=== PATIENT | female | born 1985 | race Caucasian/White ===

== ENCOUNTER 2019-02-17 08:23 | Emergency (ER) | payer MEDICAID ==
--- NOTE | 2019-02-17 08:41 | UC ---
Cardiac HPI - HPI Summary HPI Summary: 33 yo with several months of recurrent episodes of left chest pain associated with shortness of breath. Describes a sharp stabbing pain in the left chest area , uncertain of duration, and apparently occurring several times per week, without associated syncopy, dizziness, diaphoresis. No cough or fever associated. No hx of asthma, no wheezing. Has been smoking 1/2-1 ppd for about 10 years. FH not well known. No hx of hypertension. Recently moved to [place], bipolar disorder has been treated previously in [place] , but has had intake at [facility]. - History of Current Complaint Stated Complaint: CHEST PAIN Time Seen by Provider: 02/17/19 08:24 Hx Obtained From: Patient Onset/Duration: Sudden Onset Timing: Intermittent Episodes Lasting: - minutes Initial Severity: Moderate Current Severity: None - pain currently resolved. Pain Intensity: 5 Chest Pain Location: Left Anterior - under left breast Character: Sharp/Stabbing Aggravating Factor(s): Nothing Alleviating Factor(s): Rest Associated Signs & Symptoms: Positive: Chest Pain, Anxiety - aware that this could be anxiety, but cannot identify triggering factors - Risk Factors Pulmonary Embolism Risk Factors: Smoking Cardiac Risk Factors: Smoking Atrial Fibrillation: Negative TAD Risk Factors: Negative PMH/Surg Hx/FS Hx/Imm Hx Psychological History: Bipolar Disorder Other History Of: Hepatitis C - treated 2018, apparently with success - Surgical History Surgical History: None - Family History Known Family History: Positive: Unknown - raised by grandparents, does not know FH - Social History Occupation: Disabled Alcohol Use: Rare Substance Use Type: Marijuana Substance Use Comment - Amount & Last Used: occasionally Smoking Status (MU): Heavy Every Day Tobacco Smoker Review of Systems All Other Systems Reviewed And Are Negative: Yes Constitutional: Positive: Negative Skin: Positive: Negative Eyes: Positive: Negative ENT: Positive: Negative Respiratory: Positive: Shortness Of Breath Cardiovascular: Positive: Chest Pain Gastrointestinal: Positive: Negative Genitourinary: Positive: Negative Motor: Positive: Negative Neurovascular: Positive: Negative Musculoskeletal: Positive: Negative Neurological: Positive: Negative Psychological: Positive: Anxious Is Patient Immunocompromised?: No Physical Exam Triage Information Reviewed: Yes Appearance: Well-Appearing - looks stated age., No Pain Distress Vital Signs: Initial Vital Signs Temp 98.2 F 02/17/19 08:29 Pulse 88 02/17/19 08:29 Resp 18 02/17/19 08:29 BP 106/69 02/17/19 08:29 Pulse Ox 100 02/17/19 08:29 Eyes: Positive: Conjunctiva Clear ENT: Positive: Normal ENT inspection, Pharynx normal, TMs normal Neck: Positive: Supple, Nontender, No Lymphadenopathy Respiratory: Positive: Lungs clear, Normal breath sounds, No respiratory distress Cardiovascular: Positive: RRR, No Murmur, Pulses Normal Abdomen Description: Positive: Nontender, No Organomegaly, Soft Musculoskeletal Exam: Normal Neurological Exam: Normal Neurological: Positive: Alert, Muscle Tone Normal Psychological: Positive: Normal Response To Family Skin Exam: Normal Diagnostics - EKG Cardiac Rate: NL Cardiac Rhythm: Sinus: Normal Ectopy: None ST Segment: Normal - Assessment/Plan Course Of Treatment: pain now resolved, reassured that history is not suggestive of cardiac disease. She has decreased smoking but not ready to stop. She has follow up with Mental Health but needs to establish primary care locally, and we will refer. - Differential Diagnoses - Chest Pain Differential Diagnosis/HQI/PQRI: ACS, Lower Respiratory Infection - Clinical Impression Provider Diagnosis: Anxiety Discharge ED - Sign-Out/Discharge Documenting (check all that apply): Patient Departure All imaging exams completed and their final reports reviewed: No Studies - Discharge Plan Condition: Stable Disposition: HOME Patient Education Materials: Anxiety (ED) Referrals: No Primary Care Phys,NOPCP [Primary Care Provider] - [facility] [Outside] Additional Instructions: Your EKG and clinical exam today are normal. Please ensure that you call the Physician referral service so that you can establish care with a local primary care provider for follow up assessment. - Billing Disposition and Condition Condition: STABLE Disposition: Home
== END 2019-02-17 09:10 | disposition home or self-care (01) ==
LOC: UCEAST 08:23
DX: F41.9 Anxiety disorder, unspecified (principal); F31.9 Bipolar disorder, unspecified; R06.02 Shortness of breath; R07.9 Chest pain, unspecified; F17.210 Nicotine dependence, cigarettes, uncomplicated
CPT/HCPCS: 99201; G0463

== ENCOUNTER 2019-04-15 20:17 | Emergency (ER) | payer MEDICAID ==
--- OUTSIDE RECORDS SUMMARY | 2019-04-15 20:24 | XMS REPORT | Continuity of Care Document ---
:1985 External Reference #:[id number] Author Name Faustino Brown M.D. 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 [phone] Medicine Problems Description No Information Available Social History Type Date Description Comments Sex Unknown ETOH Use Denies alcohol use Recreational Drug Use Former Drug User clean for 4 years Tobacco Use Start: Unknown Light tobacco smoker (10 or fewer cigarettes/day) Smoking Status Reviewed: 04/14/19 Light tobacco smoker (10 or fewer cigarettes/day) Exercise Type/Frequency Does not exercise played basketball and softball at school Allergies, Adverse Reactions, Alerts Description No Known Drug Allergies Medications Active Medications SIG Qnty Indications Ordering Date Provider Josee AGRAWAL 3 drops to R 5ml H60.311 Faustino Aggarwal 04/14/2019 0.2-1% Suspension ear twice a day Zeke Brown 12 Hour Nasal Relief 2 appl to each 15ml R04.0 Elaine Burden, 03/12/2019 [place] nostril twice a MD 0.05% Solution day Ibuprofen take 1 tablet 60tabs S29.012A Dorethaofijuan Bettencourt, 03/05/2019 600mg Tablets by mouth three TEXTILE BAG SEWER times a day as needed for pain Cyclobenzaprine HCL take 1-2 tablet 30tabs S29.012A Coretta Bettencourt, 2018 5mg by mouth two TEXTILE BAG SEWER Tablets times a day as needed for back pain M54.5 Vitamin D take one capsule by 8caps E55.9 Coretta Bettencourt, 03/03/2019 (Ergocalciferol) mouth every week for TEXTILE BAG SEWER 1.25mg (01922 8 weeks then Ut) Capsules continue on 1000 iu per day otc supplement, GNP Vitamin B-12 TR 1 tab po qday 90tabs Zsofia Sg, 03/03/2019 1000mcg TEXTILE BAG SEWER Tablets ER Hydroxyzine HCL take 1 tab by mouth 60tabs F41.9 Zsofia Sg, 02/26/2019 10mg Tablets three times a day as TEXTILE BAG SEWER needed for anxiety Latuda 1 by mouth every day 30tabs F31.9 Zsofia Sg, 40mg Tablets TEXTILE BAG SEWER History Medications Amoxicillin/Clavulanate take 1 tab 10tabs H92.01 Radha Bowen, 03/20/2019 - Potassium by mouth 03/25/2019 875-125mg Tablets every 12 hours for 5 days Metaxalone 1 tab po bid 30tabs M54.5 Zsofia 03/05/2019 - 800mg Tablets Sg, TEXTILE BAG SEWER 03/05/2019 S29.012A Immunizations Description No Information Available Vital Signs Date Vital Result Comment 04/14/2019 10:03am Height 62 inches 5'2" Weight 159.00 lb Heart Rate 93 /min BP Systolic Sitting 107 mmHg BP Diastolic Sitting 72 mmHg Body Temperature 97.0 F BMI (Body Mass Index) 29.1 kg/m2 03/20/2019 2:53pm Height 62 inches 5'2" Weight 148.38 lb Heart Rate 93 /min BP Systolic 106 mmHg BP Diastolic 72 mmHg Body Temperature 96.8 F O2 % BldC Oximetry 100 % BMI (Body Mass Index) 27.1 kg/m2 Results Test Acquired Date Facility Test Result H/L Range Note Comp Metabolic 02/26/2019 [facility] Sodium 137 mmol/L Normal 135-145 Panel [address] [place] [address] [phone] Potassium 5.0 mmol/L Normal 3.5-5.0 Chloride 101 mmol/L Normal 101-111 Co2 Carbon Dioxide 30 mmol/L Normal 22-32 Anion Gap 6 mmol/L Normal 2-11 Glucose 88 mg/dL Normal 70-100 Blood Urea Nitrogen 11 mg/dL Normal 6-24 Creatinine 0.69 mg/dL Normal 0.51-0.95 BUN/Creatinine Ratio 15.9 Normal 8-20 Calcium 9.4 mg/dL Normal 8.6-10.3 Total Protein 7.1 g/dL Normal 6.4-8.9 Albumin 4.4 g/dL Normal 3.2-5.2 Globulin 2.7 g/dL Normal 2-4 Albumin/Globulin Ratio 1.6 Normal 1-3 Total Bilirubin 0.30 mg/dL Normal 0.2-1.0 Alkaline Phosphatase 76 U/L Normal 34-104 Alt 12 U/L Normal 7-52 Ast 13 U/L Normal 13-39 Egfr Non- 96.8 >60 Egfr 117.2 >60 1 Laboratory 02/26/2019 [facility] TSH (Thyroid 1.68 Normal 0.34 -5.60 test finding [address] Stim Horm) mcIU/[place] [address] [phone] Vitamin B12 263 pg/mL Normal 180-914 2 Vitamin D Total 25(Oh) 11.1 ng/mL Low 20-50 3 CBC Auto 02/26/2019 [facility] White Blood 9.0 10^3/uL Normal 3.5-10.[address] [place] [address] [phone] Red Blood Count 4.29 10^6/uL Normal 3.70-4.87 Hemoglobin 13.4 g/dL Normal 12.0-16.0 Hematocrit 39 % Normal 35-47 Mean Corpuscular Volume 91 fL Normal 80-97 Mean Corpuscular Hemoglobin 31 pg Normal 27-31 Mean Corpuscular HGB Conc 34 g/dL Normal 31-36 Red Cell Distribution Width 14 % Normal 10-15 Platelet Count 381 10^3/uL Normal 150-450 Mean Platelet Volume 7.4 fL Normal 7.4-10.4 Abs Neutrophils 5.6 10^3/uL Normal 1.5-7.7 Abs Lymphocytes 2.4 10^3/uL Normal 1.0-4.8 Abs Monocytes 0.6 10^3/uL Normal 0-0.8 Abs Eosinophils 0.3 10^3/uL Normal 0-0.6 Abs Basophils 0.0 10^3/uL Normal 0-0.2 Abs Nucleated RBC 0.0 10^3/uL Granulocyte % 62.3 % Lymphocyte % 26.9 % Monocyte % 7.1 % Eosinophil % 3.2 % Basophil % 0.5 % Nucleated Red Blood Cells % 0.0 Hepatitis C Antibody 02/26/2019 [facility] HCV Index 32.30 s/c [address] [place] [address] [phone] Hepatitis C Antibody Reactive Abnormal Negative 4 Laboratory 02/26/2019 [facility] Hepatitis C Undetected Undetected 5 test finding [address] Rna Quant IU/[place] [address] [phone] 1 Because ethnic data is not always readily available, this report includes an eGFR for both -Americans and non- Americans. The National Kidney Disease Education Program (NKDEP) does not endorse the use of the MDRD equation for patients that are not between the ages of 18 and 70, are , have extremes of body size, muscle mass, or nutritional status, or are non- or non-. According to the National Kidney Foundation, irrespective of diagnosis, the stage of the disease is based on the level of kidney function: Stage Description GFR(mL/min/1.73 m(2)) 1 Kidney damage with normal or decreased GFR 90 2 Kidney damage with mild decrease in GFR 60-89 3 Moderate decrease in GFR 30-59 4 Severe decrease in GFR 15-29 5 Kidney failure <15 (or dialysis) 2 Normal Range 180 to 914 Indeterminate Range 145 to 180 Deficient Range <145 3 Total 25-Hydroxyvitamin D2 and D3 (25-OH-VitD) <10 ng/mL (severe deficiency) 10-19 ng/mL (mild to moderate deficiency) 20-50 ng/mL (optimum levels) 51-80 ng/mL (increased risk of hypercalciuria) >80 ng/mL (toxicity possible) 4 Specimen sent to Reference Laboratory for confirmation testing. 5 Result in log IU/mL is Undetected. ADDITIONAL INFORMATION The quantification range of this assay is 15 to 100,000,000 IU/mL (1.18 log to 8.00 log IU/mL). Testing was performed using the nayeli HCV test ([employer] with the nayeli [employer] System. Test Performed by: [facility] - [address] [address] Machine Sewer: Jose Vizcarra M.D. Ph.D.; [facility]# [id number] Procedures Description No Information Available Medical Devices Description No Information Available Encounters Type Date Location Provider Dx Diagnosis Office Visit 03/20/2019 [facility] Internal Elaine Burden, H92.01 Otalgia, [facility] Visit 03/12/2019 11:20a [facility] Internal Zsofia Sg, TEXTILE BAG SEWER R04.0 Epistaxis Medicine - [facility] M54.5 Low back pain E55.9 Vitamin D deficiency, unspecified Office Visit 03/05/2019 1:20p [facility] Internal Zsofia Sg, S29.012A Strain of Medicine - [facility] TEXTILE BAG SEWER muscle and tendon of back wall of thorax, init M54.5 Low back pain M54.2 Cervicalgia Office Visit 02/26/2019 9:20a [facility] Internal Zsofia Sg, F41.9 Anxiety disorder, Medicine - [facility] TEXTILE BAG SEWER unspecified M54.5 Low back pain M54.2 Cervicalgia F31.9 Bipolar disorder, unspecified F17.210 Nicotine dependence, cigarettes, uncomplicated B34.9 Viral infection, unspecified Assessments Date Code Description Provider 04/14/2019 H60.311 Diffuse otitis externa, right ear Faustino Brown M.D. 03/20/2019 H92.01 Otalgia, right ear Elaine Burden MD 03/20/2019 R04.0 Epistaxis Elaine Burden MD 03/12/2019 R04.0 Epistaxis Zsofia Sg, TEXTILE BAG SEWER 03/12/2019 M54.5 Low back pain Zsofia Sg, TEXTILE BAG SEWER 03/12/2019 E55.9 Vitamin D deficiency, unspecified Zsofia Sg, TEXTILE BAG SEWER 03/05/2019 S29.012A Strain of muscle and tendon of back wall Zsofia Sg, TEXTILE BAG SEWER of thorax, initial encounter 03/05/2019 M54.5 Low back pain Zsofia Sg, TEXTILE BAG SEWER 03/05/2019 M54.2 Cervicalgia Zsofia Sg, TEXTILE BAG SEWER 02/26/2019 F41.9 Anxiety disorder, unspecified Zsofia Sg, TEXTILE BAG SEWER 02/26/2019 M54.5 Low back pain Zsofia Sg, TEXTILE BAG SEWER 02/26/2019 M54.2 Cervicalgia Coretta Bettencourt, TEXTILE BAG SEWER 02/26/2019 F31.9 Bipolar disorder, unspecified Coretta Bettencourt, TEXTILE BAG SEWER 02/26/2019 F17.210 Nicotine dependence, cigarettes, Coretta Bettencourt, JESSICA uncomplicated 02/26/2019 B34.9 Viral infection, unspecified JESSICA Aggarwal Plan of Treatment Future Appointment(s):04/30/2019 11:20 am - JESSICA Aggarwal at [facility] Internal Medicine - [facility]04/16/2019 10:00 am - JESSICA Aggarwal at [facility] Internal Medicine - [facility] Functional Status Description No Information Available Mental Status Description No Information Available Referrals Refer to Reason for Referral Status Appt Date Naren Lawrence MD Sent 04/09/[address] [place] [id number] [phone] Semaj Stokes MD Received Partial [address] [place] [id number] [phone]
[2019-04-15 20:32] VITALS: BP 104/74
--- NOTE | 2019-04-15 20:37 | UC ---
Abdominal Pain Female HPI - HPI Summary HPI Summary: Patient's 33-year-old female presents to urgent care for evaluation of pain in the upper stomach left upper quadrant. Patient states it's been there for approximately 4 hours. Patient states she has been belching. Mild nausea. No vomiting. No diarrhea. No fevers or chills. No back pain different than her chronic back pain. Patient has not taken anything to try to treat her pain 11 1 Motrin yesterday. Patient without a history of similar. Patient's been able to eat and drink. Patient's states she is . No dysuria, vaginal discharge or itching or odor. Patient's medications as noted in EMR by triage was reviewed this visit. - History of Current Complaint Chief Complaint: UCAbdominalPain Stated Complaint: STOMACH PAIN Time Seen by Provider: 04/15/19 20:36 Hx Obtained From: Patient Hx Last Menstrual Period: 04/02/19 ?: No Pain Intensity: 7 Allergies/Adverse Reactions: Allergies Allergy/AdvReac Type Severity Reaction Status Date / Time No Known Allergies Allergy Verified 04/15/19 20:32 PMH/Surg Hx/FS Hx/Imm Hx Previously Healthy: Yes Other History Of: Hepatitis C - treated 2018, apparently with success - Surgical History Surgical History: Yes Surgery Procedure, Year, and Place: bunyon surgery, trach - Family History Known Family History: Positive: Unknown - raised by grandparents, does not know FH, Non-Contributory - Social History Occupation: Disabled - Yet every time he everything Lives: With Family Alcohol Use: Occasionally Substance Use Type: Marijuana Substance Use Comment - Amount & Last Used: occasionally Smoking Status (MU): Current Every Day Smoker Type: eCigarettes Amount Used/How Often: vapes Review of Systems All Other Systems Reviewed And Are Negative: Yes Constitutional: Positive: Negative Skin: Positive: Negative Eyes: Positive: Negative ENT: Positive: Negative Respiratory: Positive: Negative Cardiovascular: Positive: Negative Gastrointestinal: Positive: Abdominal Pain, Nausea Genitourinary: Positive: Negative Physical Exam - Summary Physical Exam Summary: Vital Signs Reviewed: Yes A+Ox3, no distress Eyes: Conjunctiva Clear, ANT. EOM intact and full ENT: Hearing grossly normal TM x 2 clear, + turbiantes inflammed, + PND mmoist , uvula midline, no exudate, + erythema Neck: Positive: Supple Respiratory: Positive: No respiratory distress, No accessory muscle use + CTA throughout no w/r Cardiovascular: RRR nl s1, s2 no m/r CBT <2 sec abd soft + BS nt soft + BS mild epigastric discomfort with palpation - no guarding, no cva Musculoskeletal Exam: FRIEDMAN x 4 without difficulty Strength Intact, ROM Intact Neurological: Positive: Alert, + sensation throughout Psychological: Positive: Normal Response To examiner Skin: Positive: no rash, no ecchymosis Triage Information Reviewed: Yes Vital Signs: Initial Vital Signs Temp 99 F 04/15/19 20:25 Pulse 74 04/15/19 20:25 Resp 16 04/15/19 20:25 BP 104/74 04/15/19 20:25 Pulse Ox 98 04/15/19 20:25 Re-Evaluation - Re-Evaluation First Eval Change: Improved - Patient reports feeling much better after the cocktail. His pain is still present but not like it was. Recommend patient take over-the- counter Maalox, Tums or Pepto-Bismol. Recommend Pepcid twice a day. Discussed with patient will be back the next 1-2 days. Patient but with PCP in am. Strict return precautions discussed. Patient comfortable in agreement with plan. Abd Pain Female Course/Dx - Course Course Of Treatment: Patient presents to urgent care for evaluation of epigastric abdominal pain for last 24 hours. 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 Patient's been able to eat and drink. No fever. On exam vital signs are stable. Patient is nontoxic appearing. Pain is epigastric. We'll check urine and strep as patient's crit. We'll give GI cocktail reassess. Patient comfortable in agreement with plan. Of note, patient does have an appointment with her primary care tomorrow morning at 9:30. Patient was concerned that she does have a history of hepatitis C was told that her symptoms could come back even though she was "cured". Discussed with patient will also check some baseline labs including a mono given the fact that her throat has erythema and she has mild left upper quadrant pain. Patient comfortable in agreement with plan. - Differential Dx/Diagnosis Provider Diagnosis: Epigastric pain Discharge ED - Sign-Out/Discharge Documenting (check all that apply): Patient Departure All imaging exams completed and their final reports reviewed: No Studies - Discharge Plan Condition: Stable Disposition: HOME Patient Education Materials: Epigastric Pain (ED) Referrals: Coretta Bettencourt NP [Primary Care Provider] - Additional Instructions: - Stay well hydrated. Drink plenty of non-alcoholic, non-caffinated beverages - eat small, frequent meals - bland food - avoid spicy food, acidic food, tomato based food - okay to take Tums or Maalox for pain - the blook work drawn today will come back in 1-2 days - you will receive a call from a care steamer tender with any concerning result - Keep your appointment with your doctor tomorrow. If your symptoms change or worsen, go to the emergency department - Billing Disposition and Condition Condition: STABLE Disposition: Home
[2019-04-15] MEDS ORDERED: Acetaminophen TAB* 325 MG PO ONE (20:52)
[2019-04-15] MEDS ORDERED: Al Hydrox/Mg Hydrox/Simet LIQ* 30 ML UDC PO ONE (20:52)
[2019-04-16 11:07] LABS: ABS Basophils 0.1 10^3/ul (0-0.2); ABS Eosinophils 0.2 10^3/ul (0-0.6); ABS Lymphocytes 3.7 10^3/ul (1.0-4.8); ABS Monocytes 0.6 10^3/ul (0-0.8); ABS Neutrophils 4.7 10^3/ul (1.5-7.7); Eosinophil % 1.7 %; Hematocrit 37 % (35-47); Hemoglobin 13.2 g/dL (12.0-16.0); Mean Corpuscular HGB Conc 35 g/dL (31-36); Mean Corpuscular Hemoglobin 31 pg (27-31); Mean Corpuscular Volume 88 fL (80-97); Mean Platelet Volume 7.7 fL (7.4-10.4); Platelet Count 347 10^3/uL (150-450); Red Blood Count 4.22 10^6 /uL (3.70-4.87); Red Cell Distribution Width 13 % (10-15); White Blood Count 9.2 10^3/uL (3.5-10.8)
[2019-04-16 11:13] LABS: Albumin 4.6 g/dL (3.2-5.2); Calcium 9.6 mg/dL (8.6-10.3); Total Bilirubin 0.3 mg/dL (0.2-1.0)
[2019-04-16 11:19] LABS: Albumin/Globulin Ratio 1.7 (1-3); EGFR African American 84.1 (>60); EGFR Non-African American 69.5 (>60); Globulin 2.7 g/dL (2-4); Total Protein 7.3 g/dL (6.4-8.9)
== END 2019-04-15 21:40 | disposition home or self-care (01) ==
LOC: UCEAST 20:17
DX: R10.13 Epigastric pain (principal); R10.12 Left upper quadrant pain; F17.290 Nicotine dependence, other tobacco product, uncomplicated
CPT/HCPCS: 36415; 80053; 81003; 85025; 86308; 86664; 86665; 87086; 87651; 99212; A9270-GY; G0463

== ENCOUNTER 2019-04-17 20:10 | Emergency (ER) | payer MEDICAID ==
--- OUTSIDE RECORDS SUMMARY | 2019-04-17 20:28 | XMS REPORT | Continuity of Care Document ---
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 [phone] Medicine Problems Description No Information Available Social History Type Date Description Comments Sex Unknown ETOH Use Denies alcohol use Recreational Drug Use Former Drug User clean for 4 years Tobacco Use Start: Unknown Light tobacco smoker (10 or fewer cigarettes/day) Smoking Status Reviewed: 04/16/19 Light tobacco smoker (10 or fewer cigarettes/day) Exercise Type/Frequency Does not exercise played basketball and softball at school Allergies, Adverse Reactions, Alerts Description No Known Drug Allergies Medications Active Medications SIG Qnty Indications Ordering Date Provider Tizanidine HCL i tab po bid a 60tabs M54.5 Coretta Bettencourt, 04/16/2019 4mg Tablets needed ALUMINUM SHINGLE ROOFER Ciprodex 4 drops into 7.500ml H60.311 Faustino E. 04/14/2019 0.3-0.1% affected ear Zeke Brown Suspension twice daily for 7 days 12 Hour Nasal Relief 2 appl to each 15ml R04.0 Elaine 03/12/2019 [place] nostril twice a MD Bertram 0.05% Solution day Ibuprofen take 1 tablet by 60tabs S29.012A Coretta Bettencourt, 03/05/2019 600mg Tablets mouth three ALUMINUM SHINGLE ROOFER times a day as needed for pain Cyclobenzaprine HCL take 1-2 tablet 30tabs S29.012A Coretta Bettencourt, 2018 5mg by mouth two ALUMINUM SHINGLE ROOFER Tablets times a day as needed for back pain M54.5 Vitamin D take one capsule by 8caps E55.9 Coretta Bettencourt, 03/03/2019 (Ergocalciferol) mouth every week for ALUMINUM SHINGLE ROOFER 1.25mg (96478 8 weeks then Ut) Capsules continue on 1000 iu per day otc supplement, GNP Vitamin B-12 TR 1 tab po qday 90tabs Dorethaofijuan Bettencourt, 03/03/2019 1000mcg ALUMINUM SHINGLE ROOFER Tablets ER Hydroxyzine HCL take 1 tab by mouth 60tabs F41.9 Dorethaofia Sg, 02/26/2019 10mg Tablets three times a day as ALUMINUM SHINGLE ROOFER needed for anxiety Latuda 1 by mouth every day 30tabs F31.9 Zsofia Sg, 40mg Tablets ALUMINUM SHINGLE ROOFER History Medications Cipro HC 3 drops to R 5ml H60.311 Faustino Aggarwal 04/14/2019 - 0.2-1% ear twice a day Zeke Brown 04/14/2019 Suspension Amoxicillin/Clavulan take 1 tab by 10tabs H92.01 Radha Bowen MD 2018 - ate Potassium mouth every 12 03/25/2019 hours for 5 875-125mg Tablets days Metaxalone 1 tab po bid 30tabs M54.5 Dorethaofia Sg, 03/05/2019 - 800mg ALUMINUM SHINGLE ROOFER 03/05/2019 Tablets S29.012A Immunizations Description No Information Available Vital Signs Date Vital Result Comment 04/16/2019 10:01am Height 62 inches 5'2" 04/14/2019 10:03am Height 62 inches 5'2" Weight 159.00 lb Heart Rate 93 /min BP Systolic Sitting 107 mmHg BP Diastolic Sitting 72 mmHg Body Temperature 97.0 F BMI (Body Mass Index) 29.1 kg/m2 Results Test Acquired Date Facility Test Result H/L Range Note Poc Urinalysis 04/15/2019 [facility] Poc Glucose, NEGATIVE Negative [address] [place] [address] [phone] Poc Bilirubin, Urine NEGATIVE Negative Poc Ketone, Urine NEGATIVE Negative Poc Specific [place], Urine 1.020 Normal 1.010-1.030 Poc Blood, Urine NEGATIVE Negative 1 Poc pH, Urine 7.5 Normal 5-9 Poc Protein, Urine NEGATIVE Negative Poc Urobilinogen, Urine 0.2 Negative Poc Nitrite, Urine NEGATIVE Negative Poc Leukocytes, Urine TRACE Negative Poc Color, Urine LIGHT YELLOW Poc Clarity, Urine SLIGHTLY CLOUDY Laboratory 04/15/2019 [facility] Rapid Strep Negative Negative [address] [place] [address] [phone] Comp Metabolic 02/26/2019 [facility] Sodium 137 mmol/L Normal 135-145 [place] [address] [phone] Potassium 5.0 mmol/L Normal 3.5-5.0 Chloride 101 [...] Egfr Non- 96.8 >60 Egfr 117.2 >60 3 Laboratory 02/26/2019 [facility] TSH (Thyroid 1.68 Normal 0.34 -5.[address] Stim Horm) mcIU/[place] [address] [phone] Vitamin B12 263 pg/mL Normal 180-914 4 Vitamin D Total 25(Oh) 11.1 ng/mL Low 20-50 5 CBC Auto 02/26/2019 [facility] White Blood 9.0 10^3/uL Normal 3.5-10.8 Diff [address] [place] [address] [phone] Red Blood Count 4.29 10^6/uL Normal 3.70-4.87 [...] Cells % 0.0 Hepatitis C Antibody 02/26/2019 [facility] HCV Index 32.30 s/c [address] [place] [address] [phone] Hepatitis C Antibody Reactive Abnormal Negative 6 Laboratory 02/26/2019 [facility] Hepatitis C Undetected Undetected 7 test finding [address] Rna Quant IU/[place] [address] [phone] 1 Research Professional: [id number] Research Professional: [id number] Suboptimal collection technique may reduce sensitivity of test. Refer to the [facility] Test Catalog for collection information: [email or web address] As with all diagnostic procedures, the laboratory results obtained should be used in conjunction with other clinical information available to the physician, including confirmation by another method, as applicable. 3 Because ethnic data is not always readily [...] 15-29 5 Kidney failure <15 (or dialysis) 4 Normal Range 180 to 914 Indeterminate Range 145 to 180 Deficient Range <145 5 Total 25-Hydroxyvitamin D2 and D3 (25-OH-VitD) <10 ng/mL (severe deficiency) 10-19 ng/mL (mild to moderate deficiency) 20-50 ng/mL (optimum levels) 51-80 ng/mL (increased risk of hypercalciuria) >80 ng/mL (toxicity possible) 6 Specimen sent to Reference [facility] for confirmation testing. 7 Result in log IU/mL is Undetected. ADDITIONAL INFORMATION The quantification range of this assay is 15 to 100,000,000 IU/mL (1.18 log to 8.00 log IU/mL). Testing was performed using the nayeli HCV test ([employer] with the nayeli WhatsOpen0 System. Test Performed by: [place] [address] Decorator Inspector: Jose Vizcarra M.D. Ph.D.; CLIA# [id number] Procedures Description No Information Available Medical Devices Description No Information Available Encounters Type Date Location Provider Dx Diagnosis Office Visit 03/20/2019 [facility] Elaine Burden, H92.01 Otalgia, right [facility] 3:[facility] R[facility]0 Epistaxis Office Visit 03/12/2019 11:20a [facility] JESSICA Aggarwal R04.0 Epistaxis [facility] M54.5 Low back pain E55.9 Vitamin D deficiency, unspecified Office Visit 03/05/2019 1:20p [facility] Coretta Bettencourt, S29.012A Strain [facility] muscle and tendon of back wall of thorax, init M54.5 Low back pain M54.2 Cervicalgia Office Visit 02/26/2019 9:20a [facility] Coretta Bettencourt, F41.9 Anxiety disorder, [facility] [facility] unspecified M54.5 Low back pain M54.2 Cervicalgia F31.9 Bipolar disorder, unspecified F17.210 Nicotine dependence, cigarettes, uncomplicated B34.9 Viral infection, unspecified Assessments Date Code Description Provider 04/16/2019 R10.12 Left upper quadrant pain Zsofia Sg, [employer] 04/16/2019 M54.5 Low back pain Zsofia Sg, [employer] 04/16/2019 E55.9 Vitamin D deficiency, unspecified Zsofia Sg, [employer] 04/16/2019 F31.9 Bipolar disorder, unspecified Zsofia Sg, [facility] 04/16/2019 E78.5 Hyperlipidemia, unspecified Zsofia Sg, [facility] 04/16/2019 E53.9 Vitamin B deficiency, unspecified Zsofia Sg, [facility] 04/14/2019 H60.311 Diffuse otitis externa, right ear Faustino Brown M.D. 03/20/2019 H92.01 Otalgia, right ear Elaine Burden MD 03/20/2019 R04.0 Epistaxis Elaine Burden MD 03/12/2019 R04.0 Epistaxis Zsofia Sg, [facility] 03/12/2019 M54.5 Low back pain Zsofia Sg, [facility] 03/12/2019 E55.9 Vitamin D deficiency, unspecified Zsofia Sg, [facility] 03/05/2019 S29.012A Strain of muscle and tendon of back wall Zsofia Sg, [employer] of thorax, initial encounter 03/05/2019 M54.5 Low back pain Zsofia Sg, [employer] 03/05/2019 M54.2 Cervicalgia Zsofia Sg, [employer] 02/26/2019 F41.9 Anxiety disorder, unspecified Zsofia Sg, [facility] 02/26/2019 M54.5 Low back pain Zsofia Sg, [employer] 02/26/2019 M54.2 Cervicalgia Zsofia Sg, [employer] 02/26/2019 F31.9 Bipolar disorder, unspecified Zsofia Sg, [employer] 02/26/2019 F17.210 Nicotine dependence, cigarettes, Zsofia Sg, ALUMINUM [employer]INGLE ROOFER uncomplicated 02/26/2019 B34.9 Viral infection, unspecified Zsofia Sg, ALUMINUM [employer]INGLE [employer]OOFER Plan of Treatment Future Appointment(s):05/21/2019 1:20 pm - JESSICA Aggarwal at [facility] - KAY AggarwalPR10.12 Left upper quadrant painNew Labs:Comp Metabolic Panel, Ordered: 04/16/19Comments:For now make sure that you stay well hydrated. Drink plenty of non-alcoholic, non-caffinated beverages - eat small, frequent meals - increase your fiber intake - avoid spicy food, acidic food, tomato based food - okay to take Tums or Maalox for painFollow up:4 weeks for PEM54.5 Low back painNew Medication:Tizanidine HCL 4 mg - i tab po bid a gkmnqsV67.9 Vitamin D deficiency, gafagoazoxcU88.9 Bipolar disorder, unspecifiedComments:Will check Latuda level uupuwI83.5 Hyperlipidemia , wgxqlwxeubsB10.9 Vitamin B deficiency, unspecified Functional Status Description No Information Available Mental Status Description No Information Available Referrals Refer to Dr Reason for Referral Status Appt Date Naren Lawrence MD Sent 04/09/2019 [address] [place] [address] [phone] Semaj Stokes MD Received Partial [address] [place] [address] [phone]
[2019-04-17] MEDS ORDERED: Ondansetron INJ* 2 MG/ML VIAL IV ONE (21:20)
[2019-04-17] MEDS ORDERED: Lidocaine 2% VISCOUS* 15 ML UDC PO ONE (21:20)
[2019-04-17] MEDS ORDERED: NS 0.9% 1000 ML** 1,000 ML IV ONE (21:20)
[2019-04-17] MEDS ORDERED: Al Hydrox/Mg Hydrox/Simet LIQ* 30 ML UDC PO ONE (21:20)
--- NOTE | 2019-04-17 21:21 | ED ---
Abdominal Pain/Female - HPI Summary HPI Summary: Patient complains of left side abdominal pain, nausea and vomiting after eating 5 days. Pain described as constant with spikes, no onset, sharp. Denies trauma, fever, cough, sore throat, diarrhea, change in urine, change in BM, vaginal symptoms. Medical history is none. Abdominal surgical history is none. Patient tried Maalox 2 hours ago with some relief. No prior history of GERD. - History of Current Complaint Chief Complaint: EDAbdPain Stated Complaint: L SIDE STOMACH PAIN AND VOMITING PER PT Time Seen by Provider: 04/17/19 21:10 Hx Obtained From: Patient Hx Last Menstrual Period: 04/02/19 Onset/Duration: Gradual Onset, Lasting Days Timing: Constant Severity Initially: Moderate Severity Currently: Moderate Pain Intensity: 5 Pain Scale Used: 0-10 Numeric Location: Discrete At: LUQ Radiates: No Character: Sharp Aggravating Factor(s): Food Alleviating Factor(s): Antacids Associated Signs and Symptoms: Positive: Decreased Appetite, Nausea, Vomiting Allergies/Adverse Reactions: Allergies Allergy/AdvReac Type Severity Reaction Status Date / Time No Known Allergies Allergy Verified 04/15/19 20:32 Home Medications: Home Medications Lurasidone(*) [Latuda] 40 mg PO DAILY WITH MEAL 04/17/19 [History Confirmed ] PMH/Surg Hx/FS Hx/Imm Hx Endocrine/Hematology History: Denies: Hx Anticoagulant Therapy Cardiovascular History: Denies: Hx Pacemaker/ICD History: Denies: Hx Dialysis Musculoskeletal History: Denies: Hx Scoliosis Sensory History: Denies: Hx Eye Prosthesis Opthamlomology History: Denies: Hx Legally Blind EENT History: Denies: Hx Deafness Neurological History: Denies: Hx Dementia, Other Neuro Impairments/Disorders - Surgical History Surgery Procedure, Year, and Place: bunyon surgery, trach Infectious Disease History: No Infectious Disease History: Reports: Hx Hepatitis - hx hep c Denies: Traveled Outside the [place] in Last 30 Days - Family History Known Family History: Positive: Unknown - raised by grandparents, does not know FH, Non-Contributory - Social History Alcohol Use: Occasionally Substance Use Type: Reports: Marijuana Substance Use Comment - Amount & Last Used: occasionally Smoking Status (MU): Current Every Day Smoker Type: eCigarettes Amount Used/How Often: vapes Review of Systems Constitutional: Negative Eyes: Negative ENT: Negative Cardiovascular: Negative Respiratory: Negative Positive: Abdominal Pain, Vomiting, Nausea Genitourinary: Negative Musculoskeletal: Negative Skin: Negative Neurological: Negative Psychological: Normal All Other Systems Reviewed And Are Negative: Yes Physical Exam - Summary Physical Exam Summary: Tenderness in left upper quadrant. Abdominal exam otherwise unremarkable. Triage Information Reviewed: Yes Vital Signs On Initial Exam: Initial Vitals Temp Pulse Resp BP Pulse Ox 99 F 86 20 127/76 98 04/17/19 20:19 04/17/19 20:19 04/17/19 20:19 04/17/19 20:19 04/17/19 20:19 Vital Signs Reviewed: Yes Appearance: Positive: Well-Appearing Skin: Positive: Warm Head/Face: Positive: Normal Head/Face Inspection Eyes: Positive: Normal Neck: Positive: Supple Respiratory/Lung Sounds: Positive: Clear to Auscultation Cardiovascular: Positive: Normal Abdomen Description: Positive: Other: Musculoskeletal: Positive: Normal Neurological: Positive: Normal Psychiatric: Positive: Normal AVPU Assessment: Alert - Andres Coma Scale Best Eye Response: 4 - Spontaneous Best Motor Response: 6 - Obeys Commands Best Verbal Response: 5 - Oriented Coma Scale Total: 15 Procedures - Sedation Patient Received Moderate/Deep Sedation with Procedure: No Diagnostics - Vital Signs Vital Signs Temp Pulse Resp BP Pulse Ox 04/17/19 20:19 99 F 86 20 127/76 98 - Laboratory Result Diagrams: 04/17/19 21:34 04/17/19 21:34 Lab Statement: Any lab studies that have been ordered have been reviewed, and results considered in the medical decision making process. Abdominal Pain Fem Course/Dx - Course Course Of Treatment: Patient complains of left side abdominal pain, nausea and vomiting after eating 5 days. Pain described as constant with spikes, no onset , sharp. Denies trauma, fever, cough, sore throat, diarrhea, change in urine, change in BM, vaginal symptoms. Medical history is none. Abdominal surgical history is none. Patient tried Maalox 2 hours ago with some relief. No prior history of GERD. Vital signs within normal limits. Labs unremarkable. Patient 's symptoms completely resolved with GI cocktail. - Diagnoses Provider Diagnoses: Gastritis, Nausea & vomiting Discharge ED - Sign-Out/Discharge Documenting (check all that apply): Patient Departure - Discharge Plan Condition: Stable Disposition: HOME Prescriptions: Lidocaine 2% VISCOUS* [Xylocaine 2% Viscous*] 15 ml SWISH SPIT Q6H PRN #1 btl PRN Reason: Pain - Moderate Omeprazole 20 mg PO DAILY 30 Days #30 capsule. Ondansetron ODT TAB* [Zofran 4 MG Odt TAB*] 4 mg PO Q8H PRN 4 Days #14 tab.odt PRN Reason: Nausea Patient Education Materials: Gastritis (ED) Referrals: Reggie Encarnacion MD [Medical Doctor] - Coretta Bettencourt NP [Primary Care Provider] - Additional Instructions: Take omeprazole daily for at least 2 weeks. Gentle diet. If your symptoms persist follow-up with primary care and/or GI doctor Alysha for further evaluation. Return to the ED for any new or worsening symptoms. - Billing Disposition and Condition Condition: STABLE Disposition: Home
[2019-04-17 21:39] LABS: ABS Basophils 0.1 10^3/ul (0-0.2); ABS Eosinophils 0.2 10^3/ul (0-0.6); ABS Lymphocytes 3.5 10^3/ul (1.0-4.8); ABS Monocytes 0.6 10^3/ul (0-0.8); ABS Neutrophils 4.9 10^3/ul (1.5-7.7); Eosinophil % 1.9 %; Hematocrit 36 % (35-47); Hemoglobin 12.6 g/dL (12.0-16.0); Lymphocyte % 37.4 %; Mean Corpuscular HGB Conc 35 g/dL (31-36); Mean Corpuscular Hemoglobin 31 pg (27-31); Mean Corpuscular Volume 89 fL (80-97); Nucleated Red Blood Cells % 0.1; Platelet Count 339 10^3/uL (150-450); Red Blood Count 4.09 10^6 /uL (3.70-4.87); Red Cell Distribution Width 13 % (10-15); White Blood Count 9.4 10^3/uL (3.5-10.8)
[2019-04-17 21:39] LABS: Urine Appearance Cloudy; Urine Bilirubin Negative (Negative); Urine Blood Negative (Negative); Urine Color Yellow; Urine Glucose Negative (Negative); Urine Ketones Negative (Negative); Urine Nitrite Negative (Negative); Urine Protein Negative (Negative); Urine Specific Gravity 1.019 (1.010-1.030); Urine Urobilinogen Negative (Negative)
[2019-04-17 21:43] LABS: Urine Bacteria Absent (Absent); Urine Red Blood Cell Trace(0-2/hpf) (Absent); Urine Squamous Epithelial Cell Present (Absent); Urine White Blood Cell Trace(0-5/hpf) (Absent)
[2019-04-17 21:56] LABS: ALT 10 U/L (7-52); AST 11 U/L (13-39); Albumin 4.2 g/dL (3.2-5.2); Albumin/Globulin Ratio 1.5 (1-3); Alkaline Phosphatase 67 U/L (34-104); Anion Gap 6 mmol/L (2-11); BUN/Creatinine Ratio 15.7 (8-20); Blood Urea Nitrogen 13 mg/dL (6-24); CO2 Carbon Dioxide 31 mmol/L (22-32); Calcium 9.2 mg/dL (8.6-10.3); Chloride 101 mmol/L (101-111); EGFR African American 94.7 (>60); EGFR Non-African American 78.2 (>60); Globulin 2.8 g/dL (2-4); Glucose 71 mg/dL (70-100); Potassium 3.9 mmol/L (3.5-5.0); Sodium 138 mmol/L (135-145)
[2019-04-17 22:04] LABS: HCG Pregnancy < 0.60 mIU/mL
[2019-04-17] MEDS ORDERED: Pantoprazole TAB * 40 MG TAB PO ONE (22:08)
[2019-04-17 22:24] VITALS: BP 108/68
== END 2019-04-17 22:23 | disposition home or self-care (01) ==
LOC: ED 20:10
DX: K29.70 Gastritis, unspecified, without bleeding (principal); R11.2 Nausea with vomiting, unspecified; F17.290 Nicotine dependence, other tobacco product, uncomplicated
CPT/HCPCS: 36415; 80053; 81003; 81015; 83690; 84702; 85025; 86140; 87086; 96361; 96374; 99283; A9270-GY; J2405

== ENCOUNTER 2019-05-20 17:30 | Emergency (ER) | payer MEDICAID, OTHER ==
--- OUTSIDE RECORDS SUMMARY | 2019-05-20 17:41 | XMS REPORT ---
:1985 Author Organization [facility] Care Team Providers Name Role Phone DANIEL MOISES Primary Care Physician Unavailable Allergies, Adverse Reactions, Alerts Allergy Code CodeSystem Reaction Severity Criticality Status Start Substance Date Moderate Medications Medication Medication Medication Start Stop Route Dose Status Fill Code CodeSystem Date Date Instructions RxNorm Problems Problem Name Code CodeSystem Alternate Alternate Start End Status Narrative Code CodeSystem Date Date Bipolar [id number] SNOMED-CT 2018- Active affective 1-13 disorder, unspecified Relevant diagnostic tests/laboratory data Narrative No Information Procedures Procedure Code CodeSystem Target Date of Status Service Device Device Device Name Site Procedure Delivery Code Name UID Location SNOMED-CT () 2019-02-12 complete Mental d Health- [address], [id number] Psychiatric [id number] SNOMED-CT () 2019-03-05 complete Mental diagnostic 85 d Health- evaluation [facility] with [address], [id number] Psychotherap [id number] SNOMED-CT () 2019-03-17 complete Mental y, 45 04 d Health- minutes with [address], [id number] Psychotherap [id number] SNOMED-CT () 2019-02-20 complete Mental y, 45 04 d Health- minutes with [address], [id number] Psychotherap [id number] SNOMED-CT () 2019-04-03 complete Mental y, 45 04 d Health- minutes with [address], [id number] Office or [id number] SNOMED-CT () 2019-04-16 complete Mental other 6 d Health- outpatient [facility] visit for [address], [facility], established [id number] patient, [id number] which requires at least 2 of these 3 pederson components: A problem focused history; A problem focused examination; Straightforw anayeli medical decision making. Counselin Office or [id number] SNOMED-CT () 2019-03-19 complete Mental other 6 d Health- outpatient Janet visit for [facility], [facility] [address] [facility], of an [facility] [id number] patient, [id number] which requires at least 2 of these 3 pederson components: A problem focused history; A problem focused examination; Straightforw anayeli medical decision making. Counselin Encounters/Encounter Diagnoses Encounter Name Encounter Diagnosis Diagnosis Diagnosis Date of Service Code Code Name CodeSystem Diagnosis Delivery Location [facility] [id number] Bipolar SNOMED-CT 2019-04-16 Behavioral Established affective Health patient 10 disorder, Clinic [address] Minutes unspecified [place], [place], [id number] Vital Signs No Information Social History Element Description Description Start End Code CodeSystem AdditionalInfo Date Date SexAssignedAtBirth Female F AdministrativeGender 04-19 Hospital Discharge Instructions Reason For Referral Medical Equipment FDA Assessments
--- OUTSIDE RECORDS SUMMARY | 2019-05-20 17:41 | XMS REPORT | Continuity of Care Document ---
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 Medicine Problems Description No Information Available Social History Type Date Description Comments Sex Unknown ETOH Use Denies alcohol use Smoking vapes Recreational Drug Use Former Drug User clean for 4 years Exercise Type/Frequency Does not exercise played basketball and softball at school Allergies, Adverse Reactions, Alerts Description No Known Drug Allergies Medications Active Medications SIG Qnty Indications Ordering Provider Date Lidocaine Viscous Michelle Humphrey 05/08/2019 HCL CYNTHIA Oswald 2% Solution Zofran 1 tab po q day as 14tabs R10.12 Dorethaofijuan Bettencourt, 04/30/2019 4mg Tablets needed for nausea LEAD JAVASCRIPT DEVELOPER Tizanidine HCL i tab po bid a 60tabs M54.5 Dorethaofijuan Bettencourt, 04/16/2019 4mg needed LEAD JAVASCRIPT DEVELOPER Tablets Ibuprofen take 1 tablet by 60tabs S29.012A Dorethaofijuan Bettencourt, 03/05/2019 600mg mouth three times LEAD JAVASCRIPT DEVELOPER Tablets a day as needed for pain Vitamin D take one capsule 8caps E55.9 Dorethaofijuan Bettencourt, 03/03/2019 (Ergocalciferol) by mouth every LEAD JAVASCRIPT DEVELOPER week for 8 weeks 1.25mg (26200 Ut) then continue on Capsules 1000 iu per day otc supplement, GNP Vitamin B-12 TR 1 tab po qday 90tabs Dorethaofijuan Bettencourt, 03/03/2019 LEAD JAVASCRIPT DEVELOPER 1000mcg Tablets ER Hydroxyzine HCL take 1 tab by 60tabs F41.9 Dorethaofijuan Bettencourt, 02/26/2019 10mg mouth three times LEAD JAVASCRIPT DEVELOPER Tablets a day as needed for anxiety Latuda 1 by mouth every 30tabs F31.9 Dorethaofia Sg, 40mg Tablets day LEAD JAVASCRIPT DEVELOPER Omeprazole 1/2 hour before 90caps Michelle Cerratoth 20mg breakfast by CYNTHIA Oswald Capsules DR mouth every day History Medications Cipro HC 3 drops to R ear 5ml H60.311 Faustino EJesus 04/14/2019 - 0.2-1% twice a day Zeke Brown 04/14/2019 Suspension Ciprodex 4 drops into 7.500ml H60.311 Faustino E. 04/14/2019 - 0.3-0.1% affected ear Zeke Brown 05/08/2019 Suspension twice daily for 7 days Amoxicillin/Clavula take 1 tab by 10tabs H92.01 Radha Bowen MD 2018 - gerry Potassium mouth every 12 03/25/2019 hours for 5 days 875-125mg Tablets 12 Hour Nasal 2 appl to each 15ml R04.0 Elaine Burden 03/12/2019 - Relief [place] nostril twice a MD 05/08/2019 0.05% day Solution Metaxalone 1 tab po bid 30tabs M54.5 Coretta Bettencourt, 03/05/2019 - 800mg LEAD JAVASCRIPT DEVELOPER 03/05/2019 Tablets S29.012A Cyclobenzaprine HCL take 1-2 30tabs S29.012A Coretta Bettencourt, 03/05/2019 - 5mg tablet by LEAD JAVASCRIPT DEVELOPER 04/16/2019 Tablets mouth two times a day as needed for back pain M54.5 Immunizations Description No Information Available Vital Signs Date Vital Result Comment 05/08/2019 3:12pm Height 62 inches 5'2" Weight 161.00 lb Heart Rate 90 /min BP Systolic 102 mmHg BP Diastolic 70 mmHg BMI (Body Mass Index) 29.4 kg/m2 04/30/2019 11:41am Height 62 inches 5'2" Weight 159.00 lb Heart Rate 86 /min BP Systolic 119 mmHg BP Diastolic 73 mmHg Body Temperature 97.9 F O2 % BldC Oximetry 98 % BMI (Body Mass Index) 29.1 kg/m2 Results Test Acquired Date Facility Test Result H/L Range Note Urinalysis Profile 04/17/2019 [facility] Urine Color Yellow [address] [place] [address] [phone] Urine Appearance Cloudy Urine Specific [place] 1.019 Normal 1.010-1.030 Urine pH 6.0 Normal 5-9 Urine Urobilinogen Negative Negative Urine Ketones Negative Negative Urine Protein Negative Negative Urine Leukocytes 1+ Abnormal Negative Urine Blood Negative Negative Urine Nitrite Negative Negative Urine Bilirubin Negative Negative Urine Glucose Negative Negative Urine White Blood Cell Trace(0-5/hpf) Absent Urine Red Blood Cell Trace(0-2/hpf) Absent Urine Bacteria Absent Absent Urine Squamous Epithelial Cell Present Abnormal Absent CBC Auto 04/17/2019 [facility] White Blood 9.4 10^3/uL Normal 3.5-10.[address] [place] [address] [phone] Red Blood Count 4.09 10^6/uL Normal 3.70-4.87 Hemoglobin 12.6 g/dL Normal 12.0-16.0 Hematocrit 36 % Normal 35-47 Mean Corpuscular Volume 89 fL Normal 80-97 Mean Corpuscular Hemoglobin 31 pg Normal 27-31 Mean Corpuscular HGB Conc 35 g/dL Normal 31-36 Red Cell Distribution Width 13 % Normal 10-15 Platelet Count 339 10^3/uL Normal 150-450 Mean Platelet Volume 7.0 fL Low 7.4-10.4 Abs Neutrophils 4.9 10^3/uL Normal 1.5-7.7 Abs Lymphocytes 3.5 10^3/uL Normal 1.0-4.8 Abs Monocytes 0.6 10^3/uL Normal 0-0.8 Abs Eosinophils 0.2 10^3/uL Normal 0-0.6 Abs Basophils 0.1 10^3/uL Normal 0-0.2 Abs Nucleated RBC 0.0 10^3/uL Granulocyte % 52.7 % Lymphocyte % 37.4 % Monocyte % 6.9 % Eosinophil % 1.9 % Basophil % 1.1 % Nucleated Red Blood Cells % 0.1 Comp Metabolic 04/17/2019 [facility] Sodium 138 mmol/L Normal 135-[address] [place] [address] [phone] Potassium 3.9 mmol/L Normal 3.5-5.0 Chloride 101 mmol/L Normal 101-111 Co2 Carbon Dioxide 31 mmol/L Normal 22-32 Anion Gap 6 mmol/L Normal 2-11 Glucose 71 mg/dL Normal 70-100 Blood Urea Nitrogen 13 mg/dL Normal 6-24 Creatinine 0.83 mg/dL Normal 0.51-0.95 BUN/Creatinine Ratio 15.7 Normal 8-20 Calcium 9.2 mg/dL Normal 8.6-10.3 Total Protein 7.0 g/dL Normal 6.4-8.9 Albumin 4.2 g/dL Normal 3.2-5.2 Globulin 2.8 g/dL Normal 2-4 Albumin/Globulin Ratio 1.5 Normal 1-3 Total Bilirubin 0.20 mg/dL Normal 0.2-1.0 Alkaline Phosphatase 67 U/L Normal 34-104 Alt 10 U/L Normal 7-52 Ast 11 U/L Low 13-39 Egfr Non- 78.2 >60 Egfr 94.7 >60 1 Laboratory test 04/17/2019 [facility] Lipase 26 U/L Normal 11.0-82.[address] [place] [address] [phone] C Reactive Protein 1.40 mg/L Normal <8.01 HCG < 0.60 mIU/mL 2 Urine Culture And 04/17/2019 [facility] Urine SEE RESULT [address] [place] [address] [phone] Comp Metabolic 04/16/2019 [facility] Sodium 137 mmol/L Normal 135-[address] [place] [address] [phone] Potassium 4.3 mmol/L Normal 3.5-5.0 Chloride 101 mmol/L Normal 101-111 Co2 Carbon Dioxide 30 mmol/L Normal 22-32 Anion Gap 6 mmol/L Normal 2-11 Glucose 66 mg/dL Low 70-100 Blood Urea Nitrogen 11 mg/dL Normal 6-24 Creatinine 0.75 mg/dL Normal 0.51-0.95 BUN/Creatinine Ratio 14.7 Normal 8-20 Calcium 9.4 mg/dL Normal 8.6-10.3 Total Protein 7.3 g/dL Normal 6.4-8.9 Albumin 4.5 g/dL Normal 3.2-5.2 Globulin 2.8 g/dL Normal 2-4 Albumin/Globulin Ratio 1.6 Normal 1-3 Total Bilirubin 0.50 mg/dL Normal 0.2-1.0 Alkaline Phosphatase 63 U/L Normal 34-104 Alt 12 U/L Normal 7-52 Ast 12 U/L Low 13-39 Egfr Non- 87.9 >60 Egfr 106.4 >60 4 Laboratory test 04/16/2019 [facility] Miscellaneous Test See Comment [address] [place], [place] [id number] [phone] Lipid Profile 04/16/2019 [facility] Triglycerides 127 mg/dL 6 (Trig/Chol/HDL) DRIVE [place], [place] [id number] [phone] Cholesterol 251 mg/dL 7 HDL Cholesterol 73.0 mg/dL 8 LDL Cholesterol 153 mg/dL 9 Laboratory test 04/16/2019 [facility] Vitamin D 30.4 ng/mL Normal 20-[address] Total 25(Oh) [place], [place] [id number] [phone] Vitamin B12 1052 pg/mL High 180-914 11 Lipase 20 U/L Normal 11.0-82.0 Amylase 67 U/L Normal 29-103 Laboratory test 04/15/2019 [facility] Rapid Strep Negative Negative [address] [place] [address] [phone] Poc Urinalysis 04/15/2019 [facility] Poc Glucose, NEGATIVE Negative [address] Urine [place], [place] [id number] [phone] Poc Bilirubin, Urine NEGATIVE Negative Poc Ketone, Urine NEGATIVE Negative Poc Specific [place], Urine 1.020 Normal 1.010-1.030 Poc Blood, Urine NEGATIVE Negative 13 Poc pH, Urine 7.5 Normal 5-9 Poc Protein, Urine NEGATIVE Negative Poc Urobilinogen, Urine 0.2 Negative Poc Nitrite, Urine NEGATIVE Negative Poc Leukocytes, Urine TRACE Negative Poc Color, Urine LIGHT YELLOW Poc Clarity, Urine SLIGHTLY CLOUDY Ebv Morris Thomason 04/15/2019 [facility] Ebv Capsid Positive Negative [address] Ag IgG Ab [place], [place] [address] [phone] Ebv Capsid Ag IgM Ab Negative Negative Morris-Thomason Nuclear Antigen Positive Negative Morris-Thomason Virus Interp See Comment 15 Urine Culture 04/15/2019 [facility] Urine SEE RESULT [address] [place] [address] [phone] Laboratory test 04/15/2019 [facility] Monospot Negative Negative 17 finding [address] [place] [address] [phone] CBC Auto Diff 04/15/2019 [facility] White Blood 9.2 10^3/uL Normal 3.5-10.[address] [place] [address] [phone] Red Blood Count 4.22 10^6/uL Normal 3.70-4.87 Hemoglobin 13.2 g/dL Normal 12.0-16.0 Hematocrit 37 % Normal 35-47 Mean Corpuscular Volume 88 fL Normal 80-97 Mean Corpuscular Hemoglobin 31 pg Normal 27-31 Mean Corpuscular HGB Conc 35 g/dL Normal 31-36 Red Cell Distribution Width 13 % Normal 10-15 Platelet Count 347 10^3/uL Normal 150-450 Mean Platelet Volume 7.7 fL Normal 7.4-10.4 Abs Neutrophils 4.7 10^3/uL Normal 1.5-7.7 Abs Lymphocytes 3.7 10^3/uL Normal 1.0-4.8 Abs Monocytes 0.6 10^3/uL Normal 0-0.8 Abs Eosinophils 0.2 10^3/uL Normal 0-0.6 Abs Basophils 0.1 10^3/uL Normal 0-0.2 Abs Nucleated RBC 0.0 10^3/uL Granulocyte % 51.0 % Lymphocyte % 40.0 % Monocyte % 6.7 % Eosinophil % 1.7 % Basophil % 0.6 % Nucleated Red Blood Cells % 0.0 Comp Metabolic 04/15/2019 [facility] Sodium 135 mmol/L Normal 135-145 Panel [address] [place] [address] [phone] Potassium 4.0 mmol/L Normal 3.5-5.0 Chloride 99 mmol/L Low 101-111 Co2 Carbon Dioxide 31 mmol/L Normal 22-32 Anion Gap 5 mmol/L Normal 2-11 Calcium 9.6 mg/dL Normal 8.6-10.3 Albumin 4.6 g/dL Normal 3.2-5.2 Total Bilirubin 0.30 mg/dL Normal 0.2-1.0 Glucose 77 mg/dL Normal 70-100 Blood Urea Nitrogen 11 mg/dL Normal 6-24 Creatinine 0.92 mg/dL Normal 0.51-0.95 BUN/Creatinine Ratio 12.0 Normal 8-20 Total Protein 7.3 g/dL Normal 6.4-8.9 Globulin 2.7 g/dL Normal 2-4 Albumin/Globulin Ratio 1.7 Normal 1-3 Alkaline Phosphatase 61 U/L Normal 34-104 Alt 11 U/L Normal 7-52 Ast 12 U/L Low 13-39 Egfr Non- 69.5 >60 Egfr 84.1 >60 18 Comp Metabolic 02/26/2019 [facility] Sodium 137 mmol/L Normal 135-[address] [place] [address] [phone] Potassium 5.0 mmol/L Normal 3.5-5.0 Chloride 101 [...] Egfr Non- 96.8 >60 Egfr 117.2 >60 19 Laboratory 02/26/2019 [facility] TSH (Thyroid 1.68 Normal 0.34 -5.60 test finding [address] Stim Horm) mcIU/[place] [address] [phone] Vitamin B12 263 pg/mL Normal 180-914 20 Vitamin D Total 25(Oh) 11.1 ng/mL Low 20-50 21 CBC Auto 02/26/2019 [facility] White Blood 9.0 10^3/uL Normal 3.5-10.[address] [place] [address] [phone] Red Blood Count 4.29 10^6/uL Normal 3.70-4.87 [...] Cells % 0.0 Hepatitis C Antibody 02/26/2019 [facility] HCV Index 32.30 s/c [address] [place] [address] [phone] Hepatitis C Antibody Reactive Abnormal Negative 22 Laboratory 02/26/2019 [facility] Hepatitis C Undetected Undetected 23 test finding [address] Rna Quant IU/[place] [address] [phone] 1 Because ethnic data is not always [...] 5 Kidney failure <15 (or dialysis) 2 <5.0 Negative 5.0 - 25.0 Indeterminate (Repeat testing recommended after 72 hours) >25.0 Positive Perimenopausal women can display HCG levels of up to 20 mIU/mL 3 SEE RESULT BELOW Name: KIRA SOTELO : [address]: Masood Fontana MD Acct: [id number] Unit: [id number] AGE: 34 Location: ED Re04/17/19 SEX: F Status: DEP ER SPEC: [id number] EVANS: 04/17/19 [facility] DR: Jose Eduardo BAZZI REQ: [id number] RECD: 04/17/19 STATUS: JOEY MCGEE DR: [facility] Coretta Bettencourt MACHINE I COREMAKER _ SOURCE: URINE SPDESC: ORDERED: Urine Culture Procedure Result Reported Site Urine Culture Final 04/19/19- 0938 ML No growth of clinically significant organisms * ML - Main Lab . END OF REPORT DEPARTMENT OF PATHOLOGY, [address] [place] [address] Leroy Frausto M.D. Director [facility] # [id number] 4 Because ethnic data is not always readily [...] 15-29 5 Kidney failure <15 (or dialysis) 5 Test Result Flag Unit RefValue See Comment See Comment RESULT: Lurasidone, Serum / Plasma Lurasidone, Serum/Plasma Result Name Result Flag Units Lurasidone 7.3 ng/mL Reporting Limit: 2.5 ng/mL Synonym(s): Latuda Following single dose administration of 40 mg and 80 mg, the mean Cmax values in serum were approximately 54 and 64 ng/mL, respectively. Following steady-state administration of 40 mg and 80 mg, the mean Cmax values in serum were approximately 48 and 79 ng/mL, respectively. Peak serum concentrations and absorption occur in approximately 1 to 3 hours. Steady-state concentrations are reached within 7 days of initiation of therapy. The elimination half-life is approximately 18 hours. The white blood cell (WBC) count should be monitored periodically, because agranulocytosis, leukopenia, and neutropenia have been reported during clinical trials. Test Performed by: [facility] [address] [facility] [address] [place] [address] 6 Desirable: <150 Borderline High: 150-199 High: 200-499 Very High: >500 7 Desirable: <200 Borderline High: 200-239 High: >239 8 Low: <40 Desirable: 40-60 High: >60 9 Desirable: <100 Near Optimal: 100-129 Borderline High: 130-159 High: 160-189 Very High: >189 10 Total 25-Hydroxyvitamin D2 and D3 (25-OH-VitD) <10 ng/mL (severe deficiency) 10-19 ng/mL (mild to moderate deficiency) 20-50 ng/mL (optimum levels) 51-80 ng/mL (increased risk of hypercalciuria) >80 ng/mL (toxicity possible) 11 Normal Range 180 to 914 Indeterminate Range 145 to 180 Deficient Range <145 12 Music Department Chair: [id number] Suboptimal collection technique may reduce sensitivity of test. Refer to the [facility] Test Catalog for collection information: [email or web address] As with all diagnostic procedures, the laboratory results obtained should be used in conjunction with other clinical information available to the physician, including confirmation by another method, as applicable. 13 Music Department Chair: [id number] RESULT: Results suggest past infection. ADDITIONAL INFORMATION In most populations, at least 90% of the adult population will have been infected with EBV sometime in the past and therefore, will be positive for anti-VCA/IgG and anti- EBNA. Antibodies to EBNA develop 6-8 weeks after primary infection and remain present for life. Presence of VCA/ IgM antibodies indicates recent primary infection with EBV. Test Performed by: [facility] [address] [place] [address] Scheduler Maintenance: Jose Vizcarra M.D. Ph.D.; CLIA# [id number] 16 SEE RESULT BELOW Name: KIRA SOTELO : [address]: Marisol Pino MD Acct: [id number] Unit: [id number] AGE: 33 Location: [facility] Re04/15/19 SEX: F Status: DEP ER SPEC: [id number] EVANS: 04/15/19-[address]: Marisol Pino MD REQ: [id number] RECD: 04/16/19 STATUS: JOEY MCGEE DR: Coretta Bettencourt MACHINE I COREMAKER _ SOURCE: URINE SPDESC: ORDERED: Urine Culture COMMENTS: [id number] Procedure Result Reported Site Urine Culture Final 04/17/19- 1218 ML No growth of clinically significant organisms * ML - Main Lab . END OF REPORT DEPARTMENT OF PATHOLOGY, [address] [place] [address] Leroy Fruasto M.D. Director [facility] # [id number] 17 [id number] Would you like an EBV if Monospot is Negative?: Y 18 Because ethnic data is not always readily [...] 15-29 5 Kidney failure <15 (or dialysis) 19 Because ethnic data is not always readily [...] 15-29 5 Kidney failure <15 (or dialysis) 20 Normal Range 180 to 914 Indeterminate Range 145 to 180 Deficient Range <145 21 Total 25-Hydroxyvitamin D2 and D3 (25-OH-VitD) <10 ng/mL (severe deficiency) 10-19 ng/mL (mild to moderate deficiency) 20-50 ng/mL (optimum levels) 51-80 ng/mL (increased risk of hypercalciuria) >80 ng/mL (toxicity possible) 22 Specimen sent to Reference Laboratory for confirmation testing. 23 Result in log IU/mL is Undetected. ADDITIONAL INFORMATION The quantification range of this assay is 15 to 100,000,000 IU/mL (1.18 log to 8.00 log IU/mL). Testing was performed using the nayeli HCV test ([employer] with the nayeli Ylopo0 System. Test Performed by: [place] [address] Scheduler Maintenance: Jose Vizcarra M.D. Ph.D.; CLIA# [id number] Procedures Description No Information Available Medical Devices Description No Information Available Encounters Type Date Location Provider Dx Diagnosis Office Visit 04/16/2019 [facility] Internal Coretta Bettencourt, R10.12 Left [facility] 10:[facility] DEVELOPER quadrant pain M54.5 Low back pain E55.9 Vitamin D deficiency, unspecified F31.9 Bipolar disorder, unspecified E78.5 Hyperlipidemia, unspecified E53.9 Vitamin B deficiency, unspecified Office Visit 03/20/2019 3:00p [facility] Internal Elaine Burden, H92.01 Otalgia, right [facility] R04.0 Epistaxis Office Visit 03/12/2019 11:20a [facility] Internal KAY AggarwalP R04.0 Epistaxis [facility] M[facility].5 Low back pain E55.9 Vitamin D deficiency, unspecified Office Visit 03/05/2019 1:20p [facility] Internal Coretta Bettencourt, S29.012A [facility] [employer]AVASCRIPT DEVELOPER muscle and tendon of back wall of thorax, init M54.5 Low back pain M54.2 Cervicalgia Office Visit 02/26/2019 9:20a [facility] Internal Zsofia Sg, F41.9 Anxiety disorder, Medicine - [facility] LEAD JAVASCRIPT DEVELOPER unspecified M54.5 Low back pain M54.2 Cervicalgia F31.9 Bipolar disorder, unspecified F17.210 Nicotine dependence, cigarettes, uncomplicated B34.9 Viral infection, unspecified Assessments Date Code Description Provider 04/30/2019 R10.12 Left upper quadrant pain Zsofia Sg, [facility] 04/30/2019 R11.2 Nausea with vomiting, unspecified Zsofia Sg, [facility] 04/30/2019 H92.01 Otalgia, right ear Zsofia Sg, [facility] 04/16/2019 R10.12 Left upper quadrant pain Zsofia Sg, [facility] 04/16/2019 M54.5 Low back pain Zsofia Sg, [facility] 04/16/2019 E55.9 Vitamin D deficiency, unspecified Zsofia Sg, [facility] 04/16/2019 F31.9 Bipolar disorder, unspecified Zsofia Sg, [facility] 04/16/2019 E78.5 Hyperlipidemia, unspecified Zsofia Sg, [facility] 04/16/2019 E53.9 Vitamin B deficiency, unspecified Zsofia Sg, [facility] 04/14/2019 H60.311 Diffuse otitis externa, right ear Faustino Brown M.D. 03/20/2019 H92.01 Otalgia, right ear Elaine Burden MD 03/20/2019 R04.0 Epistaxis Elaine Burden MD 03/12/2019 R04.0 Epistaxis Zsofia Sg, [facility] 03/12/2019 M54.5 Low back pain Zsofia Sg, [facility] 03/12/2019 E55.9 Vitamin D deficiency, unspecified Zsofia Sg, [facility] 03/05/2019 S29.012A Strain of muscle and tendon of back wall Zsofia Sg, [facility] of thorax, initial encounter 03/05/2019 M54.5 Low back pain Zsofia Sg, [employer] DEVELOPER 03/05/2019 M54.2 Cervicalgia Zsofia Sg, LE[employer] JAV[employer] DEVELOPER 02/26/2019 F41.9 Anxiety disorder, unspecified Zsofia Sg, LEAD JAVASCRIPT DEVELOPER 02/26/2019 M54.5 Low back pain Zsofia Sg, [facility] 02/26/2019 M54.2 Cervicalgia Zsofia Sg, [employer] J[employer] DEVELOPER 02/26/2019 F31.9 Bipolar disorder, unspecified Dorethaofijuan Bettencourt, LEAD JAVASCRIPT DEVELOPER 02/26/2019 F17.210 Nicotine dependence, cigarettes, Coretta Bettencourt, LEAD JAVASCRIPT DEVELOPER uncomplicated 02/26/2019 B34.9 Viral infection, unspecified Dorethaofijuan Bettecnourt, [facility] Plan of Treatment Future Appointment(s):06/05/2019 4:10 pm - Michelle Oswald, CYNTHIA at [facility] Iyeyatjyuxjbexry50/04/2020 2:30 pm - Randi Bo M.D., FACP at [facility] Internal Medicine - [facility] Functional Status Description No Information Available Mental Status Description No Information Available Referrals Refer to Dr Reason for Referral Status Appt Date Dajuan Denis MD Sent 05/08/2019 [address] [place] [address] [phone] Naren Lawrence MD Sent 04/09/2019 [address] [place] [address] [phone] Semaj Stokes MD Received Partial [address] [place] [address] [phone]
--- OUTSIDE RECORDS SUMMARY | 2019-05-20 17:41 | XMS REPORT | Continuity of Care Document ---
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 System Development Engineer Medicine Problems Description No Information Available Social [...] Bettencourt, 04/30/2019 4mg Tablets needed for nausea NURSE AUDITOR Tizanidine HCL i tab po bid a 60tabs M54.5 Dorethaofijuan Bettencourt, 04/16/2019 4mg needed NURSE AUDITOR Tablets Ibuprofen take 1 tablet by 60tabs S29.012A Dorethaofijuan Bettencourt, 03/05/2019 600mg mouth three times NURSE AUDITOR Tablets a day as needed for pain Vitamin D take one capsule 8caps E55.9 Dorethaofijuan Bettencourt, 03/03/2019 (Ergocalciferol) by mouth every NURSE AUDITOR week for 8 weeks 1.25mg (61587 Ut) then continue on Capsules 1000 iu per day otc supplement, GNP Vitamin B-12 TR 1 tab po qday 90tabs Dorethaofijuan Bettencourt, 03/03/2019 NURSE AUDITOR 1000mcg Tablets ER Hydroxyzine HCL take 1 tab by 60tabs F41.9 Dorethaofijuan Bettencourt, 02/26/2019 10mg mouth three times NURSE AUDITOR Tablets a day as needed for anxiety Latuda 1 by mouth every 30tabs F31.9 Dorethaofia Sg, 40mg Tablets day NURSE AUDITOR Omeprazole 1/2 hour before 90caps Michelle Cerratoth [...] 10tabs H92.01 Radha Bowen MD 2018 - grery Potassium mouth every 12 03/25/2019 hours for 5 days 875-125mg Tablets 12 Hour Nasal 2 appl to each 15ml R04.0 Elaine Burden 03/12/2019 - Relief Aquilla nostril twice a MD 05/08/2019 0.05% day Solution Metaxalone 1 tab po bid 30tabs M54.5 Coretta Bettencourt, 03/05/2019 - 800mg NURSE AUDITOR 03/05/2019 Tablets S29.012A Cyclobenzaprine HCL take 1-2 30tabs S29.012A Coretta Bettencourt, 03/05/2019 - 5mg tablet by NURSE AUDITOR 04/16/2019 Tablets mouth two times a day [...] Result H/L Range Note Urinalysis Profile 04/17/2019 [facility] Urine Color Yellow [address] [place] [address] [phone] Urine Appearance Cloudy Urine Specific [place] 1.019 Normal 1.010-1.030 Urine pH 6.0 Normal [...] Cell Present Abnormal Absent CBC Auto 04/17/2019 [facility] White Blood 9.4 10^3/uL Normal 3.5-10.[address] [place] [address] [phone] Red Blood Count 4.09 10^6/uL Normal 3.70-4.87 [...] Blood Cells % 0.1 Comp Metabolic 04/17/2019 [facility] Sodium 138 mmol/L Normal 135-[address] [place] [address] [phone] Potassium 3.9 mmol/L Normal 3.5-5.0 Chloride 101 [...] Egfr 94.7 >60 1 Laboratory test 04/17/2019 [facility] Lipase 26 U/L Normal 11.0-82.[address] [place] [address] [phone] C Reactive Protein 1.40 mg/L Normal <8.01 HCG < 0.60 mIU/mL 2 Urine Culture And 04/17/2019 [facility] Urine SEE RESULT [address] [place] [address] [phone] Comp Metabolic 04/16/2019 [facility] Sodium 137 mmol/L Normal 135-[address] [place] [address] [phone] Potassium 4.3 mmol/L Normal 3.5-5.0 Chloride 101 [...] Egfr 106.4 >60 4 Laboratory test 04/16/2019 [facility] Miscellaneous Test See Comment [address] [place], [place] [id number] [phone] Lipid Profile 04/16/2019 [facility] Triglycerides 127 mg/dL 6 (Trig/Chol/HDL) DRIVE [place], [place] [id number] [phone] Cholesterol 251 mg/dL 7 HDL Cholesterol 73.0 mg/dL 8 LDL Cholesterol 153 mg/dL 9 Laboratory test 04/16/2019 [facility] Vitamin D 30.4 ng/mL Normal 20-[address] Total 25(Oh) [place], [place] [id number] [phone] Vitamin B12 1052 pg/mL High 180-914 11 Lipase 20 U/L Normal 11.0-82.0 Amylase 67 U/L Normal 29-103 Laboratory test 04/15/2019 [facility] Rapid Strep Negative Negative [address] [place] [address] [phone] Poc Urinalysis 04/15/2019 [facility] Poc Glucose, NEGATIVE Negative [address] Urine [place], [place] [id number] [phone] Poc Bilirubin, Urine NEGATIVE Negative Poc Ketone, Urine NEGATIVE Negative Poc Specific [place], Urine 1.020 Normal 1.010-1.030 Poc Blood, Urine NEGATIVE Negative 13 Poc pH, Urine 7.5 Normal 5-9 Poc Protein, Urine NEGATIVE Negative Poc Urobilinogen, Urine 0.2 Negative Poc Nitrite, Urine NEGATIVE Negative Poc Leukocytes, Urine TRACE Negative Poc Color, Urine LIGHT YELLOW Poc Clarity, Urine SLIGHTLY CLOUDY Ebv Morris Thomason 04/15/2019 [facility] Ebv Capsid Positive Negative [address] Ag IgG Ab [place], [place] [id number] [phone] Ebv Capsid Ag IgM Ab Negative Negative Morris-Thomason Nuclear Antigen Positive Negative Morris-Thomason Virus Interp See Comment 15 Urine Culture 04/15/2019 [facility] Urine SEE RESULT [address] [place] [address] [phone] Laboratory test 04/15/2019 [facility] Monospot Negative Negative 17 finding [address] [place] [address] [phone] CBC Auto Diff 04/15/2019 [facility] White Blood 9.2 10^3/uL Normal 3.5-10.[address] [place] [address] [phone] Red Blood Count 4.22 10^6/uL Normal 3.70-4.87 [...] Blood Cells % 0.0 Comp Metabolic 04/15/2019 [facility] Sodium 135 mmol/L Normal 135-145 Panel [address] [place] [address] [phone] Potassium 4.0 mmol/L Normal 3.5-5.0 Chloride 99 [...] Egfr 84.1 >60 18 Comp Metabolic 02/26/2019 [facility] Sodium 137 mmol/L Normal 135-[address] [place] [address] [phone] Potassium 5.0 mmol/L Normal 3.5-5.0 Chloride 101 [...] >60 Egfr 117.2 >60 19 Laboratory 02/26/2019 [facility] TSH (Thyroid 1.68 Normal 0.34 -5.60 test finding [address] Stim Horm) mcIU/[place] [address] [phone] Vitamin B12 263 pg/mL Normal 180-914 20 Vitamin D Total 25(Oh) 11.1 ng/mL Low 20-50 21 CBC Auto 02/26/2019 [facility] White Blood 9.0 10^3/uL Normal 3.5-10.[address] [place] [address] [phone] Red Blood Count 4.29 10^6/uL Normal 3.70-4.87 [...] Cells % 0.0 Hepatitis C Antibody 02/26/2019 [facility] HCV Index 32.30 s/c [address] [place] [address] [phone] Hepatitis C Antibody Reactive Abnormal Negative 22 Laboratory 02/26/2019 [facility] Hepatitis C Undetected Undetected 23 test finding [address] Rna Quant IU/[place] [address] [phone] 1 Because ethnic data is not always [...] [address]: Masood Fontana MD Acct: [id number] Unit: [id number] AGE: 34 Location: ED Re04/17/19 SEX: F Status: DEP ER SPEC: [id number] EVANS: 04/17/[address] [facility] [address]: Jose Eduardo BAZZI REQ: [id number] RECD: 04/17/19 STATUS: JOEY MCGEE DR: [facility] Coretat Bettencourt SKETCH ARTIST _ SOURCE: URINE SPDESC: ORDERED: Urine Culture Procedure Result Reported Site Urine Culture Final 04/19/19- 0938 ML No growth of clinically significant organisms * ML - Main Lab . END OF REPORT DEPARTMENT OF PATHOLOGY, [address] [place] [address] Leroy Frausto M.D. Director [facility] # [id number] 4 Because ethnic data is not always [...] reported during clinical trials. Test Performed by: [facility] [address] [facility] [address] [place] [address] 6 Desirable: <150 Borderline High: 150-199 High: [...] 145 to 180 Deficient Range <145 12 Fuel Yard Operator: [id number] Suboptimal collection technique may reduce sensitivity of test. Refer to the [facility] Test Catalog for collection information: [email or web address] As with all diagnostic procedures, the laboratory results obtained should be used in conjunction with other clinical information available to the physician, including confirmation by another method, as applicable. 13 Fuel Yard Operator: [id number] 14 [id number] RESULT: Results suggest past infection. ADDITIONAL [...] primary infection with EBV. Test Performed by: [facility] [address] [place] [address] Battery Checker: Jose Vizcarra M.D. Ph.D.; CLIA# [id number] 16 SEE RESULT BELOW Name: KIRA SOTELO : [address]: Marisol Pino MD Acct: [id number] Unit: [id number] AGE: 33 Location: [facility] Re04/15/19 SEX: F Status: DEP ER SPEC: [id number] EVANS: 04/15/19-[address]: Marisol Pino MD REQ: [id number] RECD: 04/16/19 STATUS: JOEY MCGEE DR: Coretta Bettencourt SKETCH ARTIST _ SOURCE: URINE SPDESC: ORDERED: Urine Culture COMMENTS: [id number] Procedure Result Reported Site Urine Culture Final 04/17/19- 1218 ML No growth of clinically significant organisms * ML - Main Lab . END OF REPORT DEPARTMENT OF PATHOLOGY, [address] [place] [address] Leroy Frausto M.D. Director [facility] # [id number] 17 [id number] Would you like an EBV if Monospot [...] was performed using the nayeli HCV test ([employer] with the nayeli [employer] System. Test Performed by: [place] [address] Battery Checker: Jose Vizcarra M.D. Ph.D.; CLIA# [id number] Procedures Description No Information Available Medical Devices Description No Information Available Encounters Type Date Location Provider Dx Diagnosis Office Visit 04/16/2019 [facility] Coretta Bettencourt, R10.12 Left upper 10:[facility] N[facility]SE AUDIT[facility] quadrant pain M54.5 Low back pain E55.9 Vitamin D deficiency, unspecified F31.9 Bipolar disorder, unspecified E78.5 Hyperlipidemia, unspecified E53.9 Vitamin B deficiency, unspecified Office Visit 03/20/2019 3:00p [facility] Elaine Burden, H92.01 Otalgia, right [facility] ear R04.0 Epistaxis Office Visit 03/12/2019 11:20a [facility] KAY AggarwalP R04.0 Epistaxis [facility] M54.5 Low back pain E55.9 Vitamin D deficiency, unspecified Office Visit 03/05/2019 1:20p [facility] Coretta Bettencourt, S29.012A Strain of [facility] NURSE AUDITOR muscle and tendon of back wall of thorax, init M54.5 Low back pain M54.2 Cervicalgia Office Visit 02/26/2019 9:20a [facility] Zsofia Sg, F41.9 Anxiety disorder, Medicine - [facility] NURSE AUDITOR unspecified M54.5 Low back pain M54.2 Cervicalgia F31.9 Bipolar disorder, unspecified F17.210 Nicotine dependence, cigarettes, uncomplicated B34.9 Viral infection, unspecified Assessments Date Code Description Provider 04/30/2019 R10.12 Left upper quadrant pain Zsofia Sg, [facility] 04/30/2019 R11.2 Nausea with vomiting, unspecified Zsofia Sg, [facility] 04/30/2019 H92.01 Otalgia, right ear Zsofia Sg, [facility] 04/16/2019 R10.12 Left upper quadrant pain Zsofia Sg, [facility] 04/16/2019 M54.5 Low back pain Zsofia Sg, [facility] 04/16/2019 E55.9 Vitamin D deficiency, unspecified Zsofia Sg, [facility] 04/16/2019 F31.9 Bipolar disorder, unspecified Zsofia Sg, [facility] 04/16/2019 E78.5 Hyperlipidemia, unspecified Zsofia Sg, [facility] 04/16/2019 E53.9 Vitamin B deficiency, unspecified Zsofia Sg, [facility] 04/14/2019 H60.311 Diffuse otitis externa, right ear Faustino Brown M.D. 03/20/2019 H92.01 Otalgia, right ear Elaine Burden MD 03/20/2019 R04.0 Epistaxis Elaine Burden MD 03/12/2019 R04.0 Epistaxis Zsofia Sg, [facility] 03/12/2019 M54.5 Low back pain Zsofia Sg, [facility] 03/12/2019 E55.9 Vitamin D deficiency, unspecified Zsofia Sg, [facility] 03/05/2019 S29.012A Strain of muscle and tendon of back wall Zsofia Sg, [facility] of thorax, initial encounter 03/05/2019 M54.5 Low back pain Zsofia Sg, NURSE AUDITOR 03/05/2019 M54.2 Cervicalgia Zsofia Sg, NURSE AUDITOR 02/26/2019 F41.9 Anxiety disorder, unspecified Zsofia Sg, NURSE AUDITOR 02/26/2019 M54.5 Low back pain Zsofia Sg, [facility] 02/26/2019 M54.2 Cervicalgia Zsofia Sg, NURSE AUDITOR 02/26/2019 F31.9 Bipolar disorder, unspecified Dorethaofijuan Bettencourt, NURSE AUDITOR 02/26/2019 F17.210 Nicotine dependence, cigarettes, Coretta Bettencourt, NURSE AUDITOR uncomplicated 02/26/2019 B34.9 Viral infection, unspecified Dorethaofijuan Bettencourt, [facility] Plan of Treatment Future Appointment(s):06/05/2019 4:10 pm - Michelle Oswald, CYNTHIA at [facility] Iaucbmvuvflgqyaj26/04/2020 2:30 pm - Randi Bo M.D., FACP at [facility] Internal Medicine - [facility] Functional Status Description No Information Available Mental Status Description No Information Available Referrals Refer to Dr Reason for Referral Status Appt Date Dajuan Denis MD Sent 05/08/2019 [address] [place] [address] [phone] Naren Lawrence MD Sent 04/09/2019 [address] [place] [address] [phone] Semaj Stokes MD Received Partial [address] [place] [address] [phone]
--- NOTE | 2019-05-20 20:06 | ED ---
Headache - HPI Summary HPI Summary: The patient is a 34-year-old female presenting to [facility] with a chief complaint of constant severe headache onset around 1600 today. She reports that she has a history of intermittent headache/migraines in the past secondary to a TBI but she hasnt had experienced any episodes recently. She usually takes Ibuprofen or another pain reliever which helps. However, she has taken 600mg Ibuprofen to no relief of her current episode. The sharp and throbbing headache is located in the frontal region but had also been in the occipital area at initial onset. She endorses nausea and vomiting but denies any visual changes. Symptoms currently rated 10/10 in severity. LNMP: beginning of May 2019. Past medical history significant for anxiety, depression, bipolar disorder, and chronic back pain. Family history of migraines in mother. Current smoker, occasional EtOH, marijuana use. Medications reviewed; medication compliant. Allergies noted. - History Of Current Complaint Chief Complaint: EDHeadache Stated Complaint: HEADACHE PER PT Time Seen by Provider: 05/20/19 19:54 Hx Obtained From: Patient Hx Last Menstrual Period: beginning of May 2019 Onset/Duration: Started hours ago - 1600, Still Present Initially Headache Was: Moderate Currently Pain Is: Current Pain Scale(0-10)= - 10 Timing: Constant Character: Sharp, Throbbing Location of Headache: Frontal Aggravating Factor: Nothing Allevating Factors: Nothing Associated Signs And Symptoms: Nausea, Vomiting, Other (Noted In Comments) - Negative: visual changes - Allergies/Home Medications Allergies/Adverse Reactions: Allergies Allergy/AdvReac Type Severity Reaction Status Date / Time No Known Allergies Allergy Verified 05/20/19 19:55 PMH/Surg Hx/FS Hx/Imm Hx Endocrine/Hematology History: Denies: Hx Anticoagulant Therapy Cardiovascular History: Denies: Hx Pacemaker/ICD History: Denies: Hx Dialysis Musculoskeletal History: Reports: Hx Back Problems Denies: Hx Scoliosis Sensory History: Denies: Hx Eye Prosthesis, Hx Legally Blind, Hx Deafness Opthamlomology History: Denies: Hx Eye Prosthesis, Hx Legally Blind Neurological History: Reports: Hx Headaches, Hx Migraine, Other Neuro Impairments/Disorders - TBI Denies: Hx Dementia Psychiatric History: Reports: Hx Anxiety, Hx Depression, Hx Bipolar Disorder - Surgical History Surgical History: Yes Surgery Procedure, Year, and Place: bunyon surgery, trach - Immunization History Immunizations Up to Date: No Infectious Disease History: No Infectious Disease History: Reports: Hx Hepatitis - hx hep c Denies: Traveled Outside the [place] in Last 30 Days - Family History Known Family History: Positive: Unknown - raised by grandparents, does not know FH, Other - migraines in mother - Social History Alcohol Use: Occasionally Hx Substance Use: Yes Substance Use Type: Reports: Marijuana Substance Use Comment - Amount & Last Used: occasionally Hx Tobacco Use: Yes Smoking Status (MU): Current Every Day Smoker Type: eCigarettes Amount Used/How Often: vapes - Additional Comments History Additional Comments: TBI, headache/migraines, chronic back pain Review of Systems - ROS Summary Review of Systems Summary: Home Medications Medication Instructions Recorded Confirmed Type Cyanocobalamin (Vitamin B-12) 1,000 mcg PO DAILY 04/12/19 05/20/19 History [Vitamin B-12] Ergocalciferol (Vitamin D2) 2,000 mg PO DAILY 04/12/19 05/20/19 History [Vitamin D2] Ibuprofen TAB* [Advil TAB*] 400 mg PO ONCE PRN 04/12/19 05/20/19 History hydrOXYzine HCL TAB* [Atarax 10 MG 10 mg PO TID 04/12/19 05/20/19 History TAB*] Lidocaine 2% VISCOUS* [Xylocaine 15 ml SWISH SPIT Q6H PRN #1 btl 04/17/19 Rx 2% Viscous*] Lurasidone(*) [Latuda] 40 mg PO DAILY WITH MEAL 04/17/19 05/20/19 History Omeprazole 20 mg PO DAILY 30 Days #30 04/17/19 05/20/19 Rx capsule. Ondansetron ODT TAB* [Zofran 4 MG 4 mg PO Q8H PRN 4 Days #14 tab.odt 04/17/19 Rx Odt TAB*] Negative: Other - visual changes Positive: Vomiting, Nausea Positive: Headache - frontal All Other Systems Reviewed And Are Negative: Yes Physical Exam - Summary Physical Exam Summary: General: Well-developed, Well-nourished female. No acute distress. HEENT: Normocephalic, Atraumatic. Eyes: Conjuctiva normal, PERRL. Oropharynx: Clear, mucous membranes moist, (-) exudates. Neck: Soft, FROM, (-) lymphadenopathy, (-) thyromegaly, (-) JVD. Cardiovascular: Normal sinus rhythm, (-) murmur. Lungs: Clear to auscultation bilaterally (-) wheezes, (-) rales, (-) rhonchi. Abdomen: Soft, non-tender, non-distended, (-) organomegaly, normal bowel sounds. Back: (-) CVA tenderness Extremities: No edema. Skin: Warm, dry, (-) rash. Neuro: Alert and oriented x3, moves all extremities equally. No ataxia. No gait disturbance. No sensory deficit. Normal strength, normal sensation. Psychiatric: Mood normal, affect normal. Triage Information Reviewed: Yes Vital Signs On Initial Exam: Initial Vitals Temp Pulse Resp BP Pulse Ox 97.8 F 79 18 112/78 98 05/20/19 17:33 05/20/19 17:33 05/20/19 17:33 05/20/19 17:33 05/20/19 17:33 Vital Signs Reviewed: Yes Procedures - Sedation Patient Received Moderate/Deep Sedation with Procedure: No Diagnostics - Vital Signs Vital Signs Temp Pulse Resp BP Pulse Ox 05/20/19 19:56 75 18 115/76 95 05/20/19 17:33 97.8 F 79 18 112/78 98 - Laboratory Result Diagrams: 05/20/19 20:46 05/20/19 20:46 Lab Statement: Any lab studies that have been ordered have been reviewed, and results considered in the medical decision making process. Re-Evaluation - Re-Evaluation First Eval Re-Evaluation Time: 21:20 Change: Unchanged Comment: Patient feeling nauseous and dizzy, will order Reglan Second Eval Re-Evaluation Time: 21:35 Comment: Partner accompanying patient is harrassing nurse and asked to sit in the waiting room. Patient would like to leave, patient safe for discharge at this time. Headache Course/Dx - Course Course Of Treatment: 34-year-old female presents with headache.she states she developed this headache earlier today. Does have a history of headaches after having a TBI many years ago. she did take ibuprofen at home without relief. States she had vomiting prior to arrival. Patient given IV fluids, Zofran, Toradol and Benadryl. Patient states that she felt nauseated and dizzy. Incomplete relief. Given IV Reglan. Patient's significant other very rude to staff and nurses. He was asked to wait in the waiting room. Patient states she was ready to go. Patient was discharged as patient reported improvement in her headache. Follow up with PCP. Follow sooner for any worsening symptoms. Patient administered fluids, Zofran, Benadryl, Toradol, and Reglan. - Diagnoses Provider Diagnoses: Headache Discharge ED - Sign-Out/Discharge Documenting (check all that apply): Patient Departure - Patient will be discharged home. - Discharge Plan Condition: Stable Disposition: HOME Patient Education Materials: Acute Headache (DC) Referrals: Coretta Bettencourt NP [Primary Care Provider] - 3 Days Additional Instructions: Please follow up with your primary care physician within three days. Please return to ED for any new or worsening symptoms. - Billing Disposition and Condition Condition: STABLE Disposition: Home - Attestation Statements Document Initiated by Yvonibjordin: Yes Documenting Scribe: Roya Balderrama Provider For Whom Dlaia is Documenting (Include Credential): Dr. Parvin Meek MD Scribe Attestation: Roya Hall scribed for Dr. Parvin Meek MD on 05/21/19 at 0052. Scribe Documentation Reviewed: Yes Provider Attestation: The documentation as recorded by the Roya barnett accurately reflects the service I personally performed and the decisions made by me, Dr. Parvin Meek MD Status of Scribe Document: Viewed
[2019-05-20] MEDS ORDERED: Ondansetron INJ* 2 MG/ML VIAL IV ONE (20:35)
[2019-05-20] MEDS ORDERED: Ketorolac INJ* 30 MG/ML 1 ML VIAL IV ONE (20:35)
[2019-05-20] MEDS ORDERED: NS 0.9% 1000 ML** 1,000 ML IV ONE (20:35)
[2019-05-20] MEDS ORDERED: diPHENhydraMINE IV* 50 MG/ML 1 ml VIAL (BENADRYL) IV ONE (20:35)
[2019-05-20 20:57] LABS: ABS Basophils 0.1 10^3/ul (0-0.2); ABS Eosinophils 0.1 10^3/ul (0-0.6); ABS Lymphocytes 2.9 10^3/ul (1.0-4.8); ABS Monocytes 0.6 10^3/ul (0-0.8); ABS Neutrophils 6.6 10^3/ul (1.5-7.7); Eosinophil % 1.3 %; Hematocrit 36 % (35-47); Hemoglobin 12.9 g/dL (12.0-16.0); Lymphocyte % 27.8 %; Mean Corpuscular HGB Conc 36 g/dL (31-36); Mean Corpuscular Hemoglobin 31 pg (27-31); Mean Corpuscular Volume 87 fL (80-97); Mean Platelet Volume 7.2 fL (7.4-10.4); Platelet Count 374 10^3/uL (150-450); Red Cell Distribution Width 13 % (10-15); White Blood Count 10.3 10^3/uL (3.5-10.8)
[2019-05-20 21:02] LABS: INR 1.03 (0.82-1.09)
[2019-05-20 21:14] LABS: Albumin 4.3 g/dL (3.2-5.2); Albumin/Globulin Ratio 1.3 (1-3); BUN/Creatinine Ratio 17.6 (8-20); Calcium 8.9 mg/dL (8.6-10.3); EGFR African American 107.5 (>60); EGFR Non-African American 88.8 (>60); Globulin 3.2 g/dL (2-4); Potassium 4.1 mmol/L (3.5-5.0); Total Bilirubin 0.3 mg/dL (0.2-1.0); Total Protein 7.5 g/dL (6.4-8.9)
[2019-05-20] MEDS ORDERED: Metoclopramide IV* 5 MG/ML 2 ML VIAL IV ONE (21:23)
[2019-05-20 21:44] VITALS: BP 110/62
== END 2019-05-20 21:43 | disposition home or self-care (01) ==
LOC: ED 17:30
DX: R51 Headache (principal); R11.2 Nausea with vomiting, unspecified; R42 Dizziness and giddiness; Z87.820 Personal history of traumatic brain injury; F17.290 Nicotine dependence, other tobacco product, uncomplicated
CPT/HCPCS: 36415; 80053; 85025; 85610; 96361; 96374; 96375; 99282; J1200; J1885; J2405; J2765

== ENCOUNTER 2019-07-26 12:32 | Emergency (ER) | payer OTHER ==
--- OUTSIDE RECORDS SUMMARY | 2019-07-26 12:40 | XMS REPORT ---
:1985 Author Organization [facility] Care Team Providers Name Role Phone MOISES SANCHEZ Primary Care Physician Unavailable Allergies, Adverse Reactions, Alerts Allergy Code CodeSystem Reaction Severity Criticality Status Start Substance Date Moderate Medications Medication Medication Medication Start Stop Route Dose Status Fill Code CodeSystem Date Date Instructions hydroxyzine 820162 RxNorm 2019-03-0 oral 10 mg 1 active Take 1 tablet HCl -18 3-17 tablet three times three a day as times a needed for 30 day day(s) Latuda 4524492 RxNorm 2019-03-0 oral 40 mg 1 active Take 1 tablet -18 3-17 tablet every every evening after evening meals for 30 day(s) Problems Problem Name Code CodeSystem Alternate Alternate Start End Status Narrative Code CodeSystem Date Date Bipolar [id number] SNOMED-CT 2018-04 Active affective 1-13 disorder, unspecified Relevant diagnostic tests/laboratory data Narrative No Information Procedures Procedure Code CodeSystem Target Date of Status Service Device Device Device Name Site Procedure Delivery Code Name UID Location SNOMED-CT () 2019-02-12 complete Mental d Health- [address], [id number] [id number] Psychotherap [id number] SNOMED-CT () 2019-04-03 complete Mental y, 45 04 d Health- minutes with [place] patient [address], [id number] [phone] Psychotherap [id number] SNOMED-CT () 2019-03-12 complete Mental y, 45 04 d Health- minutes with [place] patient [address], [phone] [phone] Office [place] [id number] SNOMED-CT () 2019-04-16 complete Mental other 6 d Health- outpatient [place] visit for [address], [facility], of an [place], established [id number] patient, [id number] which requires at least 2 of these 3 pederson components: A problem focused history; A problem focused examination; Straightforw anayeli medical decision making. Counselin Psychiatric [id number] SNOMED-CT () 2019-03-05 complete Mental diagnostic 85 d Health- evaluation Janet with medical [address], [phone] Psychotherap [id number] SNOMED-CT () 2019-03-17 complete Mental y, 45 04 d Health- minutes with [place] patient [address], [phone] Psychotherap [id number] SNOMED-CT () 2019-02-20 complete Mental y, 45 04 d Health- minutes with [place] patient [address], [phone] [phone] Office or [id number] SNOMED-CT () 2019-03-19 complete Mental other 6 d Health- outpatient [place] visit for [address], [facility], [place], established [id number] patient, [id number] which requires at least 2 of these 3 pederson components: A problem focused history; A problem focused examination; Straightforw anayeli medical decision making. Counselin Encounters/Encounter Diagnoses Encounter Encounter Diagnosis Diagnosis Name Diagnosis Date of Service Name Code Code CodeSystem Diagnosis Delivery Location Non-Billable [id number] Bipolar SNOMED-CT 2019-05-05 Behavioral affective Health disorder, Clinic , , unspecified , Vital Signs No Information Social History Element Description Description Start End Code CodeSystem AdditionalInfo Date Date SexAssignedAtBirth Female 1985-0 F AdministrativeGender 16 Hospital Discharge Instructions Reason For Referral Medical Equipment FDA Assessments
--- OUTSIDE RECORDS SUMMARY | 2019-07-26 12:40 | XMS REPORT | Continuity of Care Document ---
:1985 External Reference #:[id number] Author Name Armin Kumar MD (transmitted by agent of provider Lydia Abdullahi) Address [address] [place] [address] Care Team Providers Name Role Phone Coretta Mendoza - Nurse Care Team Information Nurse Practitioner Physician Assistant [phone] Practitioner Problems Description No Information Available Social History Type Date Description Comments Sex Unknown Tobacco Use Start: Unknown Current Cigarette Smoker Tobacco Use Start: Unknown Never Smoked Cigars Tobacco Use Start: Unknown Patient smoking status is unknown Smokeless Tobacco Never Used Smokeless Tobacco ETOH Use Denies alcohol use Allergies, Adverse Reactions, Alerts Description No Known Drug Allergies Medications Active Medications SIG Qnty Indications Ordering Date Provider Hydrocortisone apply to 1units Armin Kumar 07/24/2019 1% Ointment affected area twice a day Ibuprofen Emmanuel E. 07/23/2019 600mg Tablets MD Julia Vitamin B-12 1 by mouth every Emmanuel E. 07/23/2019 1000mcg day MD Julia Tablets Cyclobenzaprine HCL Unknown 5mg Tablets Vitamin D Unknown (Ergocalciferol) 1.25mg (82370 Ut) Capsules Hydroxyzine HCL Unknown 10mg Tablets Latuda Unknown 40mg Tablets Immunizations Description No Information Available Vital Signs Date Vital Result Comment 07/24/2019 3:04pm Weight 177.00 lb Weight 80.287 kg Height 63 inches 5'3" Height in cm's 160.0 cm BMI (Body Mass Index) 31.4 kg/m2 Results Description No Information Available Procedures Description No Information Available Medical Devices Description No Information Available Encounters Description No Information Available Assessments Description No Information Available Plan of Treatment No Information Available Functional Status Description No Information Available Mental Status Description No Information Available Referrals Description No Information Available
[2019-07-26 12:41] VITALS: BP 114/75
--- NOTE | 2019-07-26 13:03 | UC ---
Hip/Pelvis Pain - HPI Summary HPI Summary: Patient is a 34 year old female , who present today to the urgent care with right hip pain for past 2 days . She denies any injury or trauma and just woke up with that. She denies any change in her activity levels either. Denies any prior history of hip pain. She does have low back pain for a long time but this is different. Pain is mainly located on the outer aspect and also feels it's going down the thigh. Denies any groin pain, no problem managing her shoelaces. Denies any numbness tingling or incontinence. Pain is significant that, it's making her limp. Pain is worse with any movement and laying on the right side. She denies any fever, chills, any long-term steroids. Denies any abdominal pain. She used naproxen today morning without much relief. - History Of Current Complaint Chief Complaint: UCLowerExtremity Stated Complaint: HIP PAIN Time Seen by Provider: 07/26/19 12:43 Hx Obtained From: Patient Hx Last Menstrual Period: current ?: No Pain Intensity: 8 - Allergies/Home Medications Allergies/Adverse Reactions: Allergies Allergy/AdvReac Type Severity Reaction Status Date / Time No Known Allergies Allergy Verified 07/26/19 12:42 Home Medications: Home Medications Ibuprofen TAB* [Advil TAB*] 400 mg PO ONCE PRN 04/12/19 [History Confirmed 07/25] hydrOXYzine HCL TAB* [Atarax 10 MG TAB*] 10 mg PO TID PRN 04/12/19 [History Confirmed 07/26/19] Lurasidone(*) [Latuda] 40 mg PO BEDTIME 04/17/19 [History Confirmed 07/26/19] Ondansetron ODT TAB* [Zofran 4 MG Odt TAB*] 4 mg PO Q8H PRN 4 Days #14 tab.odt 04/17/19 [Rx Confirmed 07/26/19] Naproxen [Naproxen 500 mg tab] 500 mg PO BID PRN 07/26/19 [History Confirmed ] Omeprazole 20 mg PO DAILY PRN 07/26/19 [History Confirmed 07/26/19] PARoxetine HCL TAB* [Paxil TAB*] 10 mg PO DAILY 07/26/19 [History Confirmed ] hydrOXYzine HCL TAB* [Atarax 25 MG TAB*] 25 mg PO BEDTIME 07/26/19 [History Confirmed 07/26/19] methylPREDNISolone [Medrol Dosepak 4 MG*] 4 mg PO .SEE CHUY INSTRUCTION 6 Days # 1 chuy 07/26/19 [Rx] tiZANidine TAB* [Zanaflex TAB*] 4 mg PO DAILY 07/26/19 [History Confirmed ] PMH/Surg Hx/FS Hx/Imm Hx - Additional Past Medical History Additional PMH: Past Medical History : Hepatitis C, 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 Previously Healthy: Yes Other History Of: Hepatitis C - treated 2017, apparently with success Negative For: Anticoagulant Therapy - Surgical History Surgical History: Yes Surgery Procedure, Year, and Place: bunyon surgery, trach - Family History Known Family History: Positive: Unknown - raised by grandparents, does not know FH, Other - migraines in mother, Non-Contributory - Social History Alcohol Use: Occasionally Substance Use Type: None Substance Use Comment - Amount & Last Used: occasionally Smoking Status (MU): Current Every Day Smoker Type: eCigarettes Amount Used/How Often: vapes Household Exposure Type: Cigarettes Review of Systems All Other Systems Reviewed And Are Negative: Yes Constitutional: Positive: Negative Skin: Positive: Negative Eyes: Positive: Negative ENT: Positive: Negative Respiratory: Positive: Negative Cardiovascular: Positive: Negative Gastrointestinal: Positive: Negative Genitourinary: Positive: Negative Motor: Positive: Negative Neurovascular: Positive: Negative Musculoskeletal: Positive: Arthralgia - Right hip joint, Decreased ROM - Right hip joint Neurological/Mental Status: Positive: Negative Psychological: Positive: Negative Is Patient Immunocompromised?: No Physical Exam - Summary Physical Exam Summary: Vital Signs Reviewed: Yes A+Ox3, no distress Eyes: Conjunctiva Clear ENT: Hearing grossly normal neck: supple Respiratory: Positive: No respiratory distress, No accessory muscle use Cardiovascular: skin color reflect adequate perfusion Neurological: Positive: Alert, ambulatory without difficulty Psychological: Positive: Normal Response To Family Skin: Positive: no rash, no ecchymosis Hip/ Spine: Musculo: Walks with an antalgic gait. Spine: No loss of the normal lumbar lordosis or step-off. There is mild midline tenderness at L3-L4 , no paraspinal tenderness is noted in the same area Stability: No obvious instability. Strength: Flexion, extension, left rotation, left lateral bending, right lateral bending and right rotation strength is intact. ROM: Full Pain-free ROM Special Tests: Straight leg raise is negative bilaterally. Right Hip: Insp/Palp: Normal to inspection and there is significant tenderness to palpation in the distal gluteus medius muscle and the greater trochanter Strength: 5/5 bilaterally. Normal muscle tone bilaterally. ROM: Limited and painful range of motion. Significant p the ain with DELLA and FADIR test . Thighs: No swelling or bruising is noted. There is No tenderness of the anterior or anterolateral thigh. EHL weakness on right since bunyon surgery . Skin: No scars, rashes, lesions or ecchymosis. Neuro: Sensation intact to light touch. Motor and sensory intact. Reflexes: Left DTR's are intact. Right DTR's are intact. Toes downgoing. Coordination normal. Distal pulses intact. Triage Information Reviewed: Yes Vital Signs: Initial Vital Signs Temp 98.1 F 07/26/19 12:37 Pulse 102 07/26/19 12:37 Resp 16 07/26/19 12:37 BP 114/75 07/26/19 12:37 Pulse Ox 96 07/26/19 12:37 Vital Signs Reviewed: Yes Diagnostics - Radiology No standard instances Radiology Interpretation Completed By: Radiologist - Xrays of right hip and AP pelvis: minimal osteoarthritis of the right hip. There is minimal calcification of the superior labrum. ALIGNMENT: There is no dislocation. SOFT TISSUES: Unremarkable. OTHER FINDINGS: None. IMPRESSION: MINIMAL DEGENERATIVE CHANGES. NO ACUTE OSSEOUS INJURY. IF SYMPTOMS PERSIST, RECOMMEND REPEAT IMAGING. Hip Injury Course/Dx - Course Course Of Treatment: Xrays of right hip and AP pelvis: minimal osteoarthritis of the right hip. There is minimal calcification of the superior labrum. ALIGNMENT: There is no dislocation. SOFT TISSUES: Unremarkable. OTHER FINDINGS: None. IMPRESSION: MINIMAL DEGENERATIVE CHANGES. NO ACUTE OSSEOUS INJURY. IF SYMPTOMS PERSIST, RECOMMEND REPEAT IMAGING. Symptoms consistent with osteoarthritis flare versus greater trochanteric pain syndrome secondary to gluteus medius tendinopathy/greater trochanter bursitis. We discussed further treatment options and she declined greater trochanteric steroid injection. She was given Toradol intramuscular injection but some relief. -Plan for short course of steroid(E prescribed to the pharmacy), physical therapy and follow-up with orthopedics. She expressed understanding. - Differential Dx/Diagnosis Provider Diagnosis: Greater trochanteric pain syndrome, Right hip pain, Osteoarthritis of right hip Discharge ED - Sign-Out/Discharge Documenting (check all that apply): Patient Departure All imaging exams completed and their final reports reviewed: Yes - Discharge Plan Condition: Stable Disposition: HOME Prescriptions: methylPREDNISolone [Medrol Dosepak 4 MG*] 4 mg PO .SEE CHUY INSTRUCTION 6 Days # 1 chuy Patient Education Materials: Hip Bursitis (ED), Hip Pain (ED) Referrals: Coretta Bettencourt NP [Primary Care Provider] - If Needed Shahzad Bergman MD [Medical Doctor] - 1 Week Additional Instructions: Please start taking the medication as prescribed to the pharmacy . Take Tylenol as needed. Okay to start physical therapy and activity as tolerated. Follow up with orthopedics within a week. Return to Urgent care / ER if symptoms get worse. - Billing Disposition and Condition Condition: STABLE Disposition: Home
[2019-07-26] MEDS ORDERED: Ketorolac INJ* 30 MG/ML 1 ML VIAL IM ONE (13:20)
== END 2019-07-26 14:15 | disposition home or self-care (01) ==
LOC: UCEAST 12:32
DX: M25.551 Pain in right hip (principal); M16.11 Unilateral primary osteoarthritis, right hip; F17.290 Nicotine dependence, other tobacco product, uncomplicated
CPT/HCPCS: 96372; 99212; G0463; J1885